=== PATIENT | male | born 1975 | race Two or more races ===

== ENCOUNTER 2021-02-24 08:31 | Inpatient (IN) | payer BC ==
[~2021-02-24] VITALS: Ht 162.6 cm; Wt 101.3 kg
--- NOTE | 2021-02-24 08:54 | PHYS DOC ---
General Adult EDM: Chief Complaint: SHORTNESS OF BREATH HPI: HPI: 46-year-old male presents to the ED from [facility] urgent care by Dr. Loera from [facility] primary care, with concern for hypoxia, saturating 86% on room air, tested positive for Covid 5 days ago. C/o dry cough causing him to be of most of the night/insomnia with associated dyspnea, sore throat, headache fatigue and nausea x 5 days. Did not receive the Covid vaccine. Review of Systems: Review of Systems: Constitutional: Denies fever or chills. [] Eyes: Denies change in visual acuity. [] HENT: Denies nasal congestion or rhinorrhea Respiratory: Denies abscess or increased work of breathing Cardiovascular: Denies chest pain or edema. [] GI: Denies abdominal pain, bloody stools or diarrhea. [] : Denies dysuria or incontinence Musculoskeletal: Denies back pain or joint pain. [] Integument: Denies rash or diaphoresis Neurologic: Denies headache, focal weakness or sensory changes. [] Endocrine: Denies polyuria or polydipsia. [] Lymphatic: Denies swollen glands. [] Psychiatric: Denies depression or anxiety. [] Heart Score: C/O Chest Pain: No Risk Factors: Risk Factors: DM, Current or recent (<one month) smoker, HTN, HLP, family history of CAD, obesity. Risk Scores: Score 0 - 3: 2.5% MACE over next 6 weeks - Discharge Home Score 4 - 6: 20.3% MACE over next 6 weeks - Admit for Clinical Observation Score 7 - 10: 72.7% MACE over next 6 weeks - Early Invasive Strategies Allergies: Allergies: Allergies Coded Allergies Type Severity Reaction Last Updated Verified Penicillins Allergy Intermediate rash 02/24/21 Yes Physical Exam: PE: Constitutional: febrile/flu appearing but not toxic appearing HENT: Normocephalic, atraumatic, Eyes: EOMI, conjunctiva normal, no discharge. Neck: Normal range of motion, supple, Cardiovascular: S1/2 present, tachycardic Lungs & Thorax: Speaking in full sentences, bilateral equal chest rise, no tachypnea or increased work of breathing, 90% on 6L, was 80% on arrival Abdomen: soft, no tenderness, obese Skin: Warm, dry, no erythema, no rash. [] Extremities: No tenderness, no cyanosis, no unilateral lower extremity edema Neurologic: Alert and oriented X 3, normal motor function, normal sensory function, no focal deficits noted. [] Psychologic: Affect normal, judgement normal, mood normal. [] EKG: EKG: Sinus tachycardia 114 bpm, left axis deviation, T wave inversion lead III, no ST elevation or ST depression, S1Q3T3 present with poor R wave progression Radiology/Procedures: Radiology/Procedures: []IMAGING REPORT Signed PATIENT: OSMAR MORA ACCOUNT: [id number] : 1975 LOCATION: ER AGE: 46 SEX: M EXAM STATUS: PRE ER ORD. PHYSICIAN: MAURA BUSTOS DO REASON: soa PROCEDURE: PORTABLE CHEST 1V INDICATION: Reason: soa / Spl. Instructions: / History: COMPARISON: None. FINDINGS: Single view of chest obtained. Multifocal opacities throughout the bilateral lungs most severe at the right upper and left lower lung. Hypoexpansion. Prominent cardiomediastinal silhouette likely exaggerated by portable technique. IMPRESSION: * Bilateral pulmonic opacities which could be from bilateral pneumonia. Electronically signed by: Cristobal Abdalla MD (02/24/2021 9:41 AM) [id number] DICTATED and SIGNED BY: CRISTOBAL ABDALLA MD DATE: 02/24/21 [id number] 0 Course & Med Decision Making: Course & Med Decision Making Pertinent Labs and Imaging studies reviewed. (See chart for details) Concern for COVID-19 infection with hypoxia requiring nasal cannula and sepsis secondary to Covid with concern for community-acquired pneumonia. Started on broad-spectrum antibiotics. Will admit for further medical management. Patient stable at time of admission and agrees with this plan. I have spoken with the patient and/or caregivers. I have explained the patient's condition, diagnosis and treatment plan based on the information available to me at this time. I have answered the patient's and/or caregivers questions and answered any concerns. The patient and/or caregivers have as good an understanding of the patient's diagnosis, condition and treatment plan as can be expected at this point. The patient has been stabilized within the capability of the emergency department. The patient will be transported for further care and management or will be moved to an observation or inpatient service. I have communicated with the staff or medical practitioner taking over this patient's care. Dragon Disclaimer: Laura Disclaimer: This electronic medical record was generated, in whole or in part, using a voice recognition dictation system. Departure Departure Impression: Primary Impression: COVID-19 Additional Impressions: Hypoxia Sepsis Bilateral pneumonia Disposition: ADMITTED INPATIENT Admitting Physician: TRUONG Pérez) Condition: GUARDED MAURA WELCH DO Feb 24, 2021 08:54
[2021-02-24 09:05] LABS: BASE EXCESS ABG -1 mmol/L (-3-3); HCO3 ABG 23 mmol/L (21-28); PCO2 ABG 34 mmHg (35-46); PO2 ABG 61 mmHg (75-108); SAT O2 ABG 91 % (92-99)
[2021-02-24 09:07] LABS: FIO2 ABG 44% / 6L NC
[2021-02-24] MEDS ORDERED: DEXAMETHASONE SOD PHOS 20 MG/5 ML VIAL. IV ONE (09:15)
--- NOTE | 2021-02-24 09:22 | EKG ---
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
[2021-02-24 09:41] LABS: BASO % 0 % (0-3); EOS % 0 % (0-3); HEMATOCRIT 42.4 % (39.0-53.0); HEMOGLOBIN 14.9 g/dL (13.0-17.5); LYMPH # 0.7 x10^3/uL (1.0-4.8); LYMPH % 7 % (24-48); MEAN CORPUSCULAR HEMOGLOBIN 30 pg (25-35); MEAN CORPUSCULAR HGB CONC 35 g/dL (31-37); MEAN CORPUSCULAR VOLUME 86 fL (79-100); MONO # 0.4 x10^3/uL (0.0-1.1); MONO % 4 % (0-9); NEUT # 8.4 x10^3/uL (1.8-7.7); NEUT % 88 % (31-73); PLATELET COUNT 325 x10^3/uL (140-400); RED BLOOD COUNT 4.92 x10^6/uL (4.30-5.70); RED CELL DISTRIBUTION WIDTH 14.2 % (11.5-14.5); WHITE BLOOD COUNT 9.5 x10^3/uL (4.0-11.0)
--- NOTE | 2021-02-24 09:43 | RAD ---
INDICATION: Reason: soa / Spl. Instructions: / History: COMPARISON: None. FINDINGS: Single view of chest obtained. Multifocal opacities throughout the bilateral lungs most severe at the right upper and left lower dre g. Hypoexpansion. Prominent cardiomediastinal silhouette likely exaggerated by portable technique. IMPRESSION: * Bilateral pulmonic opacities which could be from bilateral pneumonia. Electronically signed by: Tino Blunt MD (02/24/2021 9:41 AM) [id number]
[2021-02-24 09:52] LABS: CALCIUM 8.4 mg/dL (8.5-10.1); GFR 79.8; POTASSIUM 4.7 mmol/L (3.5-5.1)
[2021-02-24 09:58] LABS: ALBUMIN 3.1 g/dL (3.4-5.0); DIRECT BILIRUBIN 0.4 mg/dL (0.0-0.2); TOTAL BILIRUBIN 0.8 mg/dL (0.2-1.0); TOTAL PROTEIN 7.4 g/dL (6.4-8.2)
[2021-02-24] MEDS ORDERED: ACETAMINOPHEN 325 MG TABLET. PO ONE (10:00)
[2021-02-24] MEDS ORDERED: cefTRIAXone IV Push 1 GM VIAL. IVP ONE (10:00)
[2021-02-24] MEDS ORDERED: IV NORMAL SALINE 1000ML BAG 1,000 ML IV ONE ×2 (10:00)
[2021-02-24] MEDS ORDERED: AZITHRMYCN 500MG IVPB FOR OMNI 250 ML IV ONE (10:00)
[2021-02-24 10:08] LABS: PROTHROMBIN TIME PATIENT 13.4 SEC (11.7-14.0)
[2021-02-24 11:12] LABS: INFLUENZA A PATIENT NEGATIVE (NEGATIVE); INFLUENZA B PATIENT NEGATIVE (NEGATIVE)
[2021-02-24 12:15] VITALS: BP 110/71
[2021-02-24 12:33] LABS: % BANDS 1 % (0-9); % LYMPHS 7 % (24-48); % MONOS 2 % (0-10); % SEGS 90 % (35-66); PLT ESTIMATE ADEQUATE (ADEQUATE)
[2021-02-24] MEDS ORDERED: METF10007 PO (13:18)
[2021-02-24] MEDS ORDERED: REMDESIVIR LOAD in IV NORMAL SALINE 250ML TV IV ONE (14:00)
[2021-02-24] MEDS ORDERED: DEXTROSE 50% 25 GM / 50ML DISP.SYRIN. IV PRN (14:30)
--- NOTE | 2021-02-24 14:42 | PDOC1 ---
History and Physical Date of Admission Date of Admission DATE: 02/24/21 TIME: 14:16 Identification/Chief Complaint Chief Complaint Shortness of breath Source Source: Patient History of Present Illness History of Present Illness Patient is a 46-year-old male with past medical history DM2, HLD, presents to the ED with complaints of worsening shortness of breath. States he was tested positive for COVID-19 5 days ago, and his symptoms have been worsening since that time. He reports associated cough, fever, headache, sore throat, fatigue, body aches, loss of smell, and loss of taste. Upon arrival in the ED he was tac hycardic and febrile, with T-max 103.3 F. His oxygen saturation was 80% on room air, which improved with 6 L nasal cannula. Labs on admission showed CBG 295, CK 462, albumin 3.1. He received IV fluids, Rocephin, and IV Decadron. States he did not receive his COVID-19 vaccination as he was concerned that the side effects may make him feel sick. Will admit patient for further medical management. Past Medical History Cardiovascular: Hyperlipidemia Endocrine: Diabetes Past Surgical History Past Surgical History: No pertinent history Family History Family History: Diabetes Social History Smoke: No ALCOHOL: none Drugs: None Current Problem List Problem List Problems Medical Problems: (1) Bilateral pneumonia Status: Acute (2) COVID-19 Status: Acute (3) Hypoxia Status: Acute (4) Sepsis Status: Acute Current Medications Current Medications Current Medications Dexamethasone Sodium Phosphate (Decadron) 10 mg 1X ONCE IV Last administered on 02/24/21at 09:18; Start 02/24/21 at 09:15; Stop 02/24/21 at 09:16; Status DC Ceftriaxone Sodium (Rocephin) 1 gm 1X ONCE IVP Last administered on 02/24/21at 10:38; Start 02/24/21 at 10:00; Stop 02/24/21 at 10:01; Status DC Azithromycin 250 ml @ 250 mls/hr 1X ONCE IV Last administered on 02/24/21at 10:43; Start 02/24/21 at 10:00; Stop 02/24/21 at 10:59; Status DC Acetaminophen (Tylenol) 650 mg 1X ONCE PO Last administered on 02/24/21at 10:46; Start 02/24/21 at 10:00; Stop 02/24/21 at 10:01; Status DC Sodium Chloride 1,000 ml @ 1,000 mls/hr 1X ONCE IV Last administered on 02/24/21at 10:36; Start 02/24/21 at 10:00; Stop 02/24/21 at 10:59; Status DC Sodium Chloride 1,000 ml @ 1,000 mls/hr 1X ONCE IV Last administered on 02/24/21at 10:00; Start 02/24/21 at 10:00; Stop 02/24/21 at 10:59; Status DC Remdesivir 200 mg/ Sodium Chloride 210 ml @ 210 mls/hr 1X ONCE IV ; Start 02/24/21 at 14:00; Stop 02/24/21 at 14:59 Remdesivir 100 mg/ Sodium Chloride 230 ml @ 460 mls/hr Q24H IV ; Start 02/25/21 at 14:00; Stop 02/28/21 at 14:29 Active Scripts Active Reported Metformin Hcl 1,000 Mg Tablet 1,000 Mg PO BIDWMEALS Allergies Allergies: Coded Allergies: Penicillins (Verified Allergy, Intermediate, rash, 02/24/21) ROS Review of System GENERAL: Fever, weakness, fatigue, body aches. No history of weight change. SKIN: No bruising, hair changes or rashes. EYES: No blurred, double or loss of vision. NOSE AND THROAT: Sore throat, loss of smell, loss of taste. Denies history of nosebleeds or hoarseness. HEART: Denies chest pain, denies palpitations. LUNGS: Cough, shortness of breath. Denies hemoptysis or wheezing. GASTROINTESTINAL: Denies nausea, vomiting, abdominal pain. GENITOURINARY: Denies dysuria, frequency, urgency, hematuria. NEUROLOGIC: Headache. Denies history of numbness, tingling, or tremor. PSYCHIATRIC: Denies anxiety, denies depression. ENDOCRINE: No history of heat or cold intolerance, polyuria or polydipsia. EXTREMITIES: Denies muscle weakness, joint pain, pain on walking or stiffness. Physical Exam Physical Exam General: Alert, Oriented X3, Cooperative, moderate distress HEENT: PERRLA, EOMI Lungs: Decreased breath sounds bilaterally, Normal air movement Heart: Tachycardic, no murmurs Cardiovascular: S1, S2 Abdomen: Normal bowel sounds, Soft, No tenderness Extremities: No clubbing, No cyanosis Skin: No rashes, No significant lesion Neuro: Normal speech, Normal tone, Sensation intact Psych/Mental Status: Mental status NL, Mood NL Vitals Vitals Vital Signs Date Time Temp Pulse Resp B/P (MAP) Pulse Ox O2 Delivery O2 Flow Rate FiO2 02/24/21 13:19 Non-Rebreather 15.0 02/24/21 12:15 98.9 96 20 110/71 (84) 94 98.9 Labs Labs Laboratory Tests Test 02/24/21 09:00 02/24/21 09:10 02/24/21 09:42 02/24/21 10:48 O2 Saturation 91 % (92-99) Arterial Blood pH 7.45 (7.35-7.45) Arterial Blood pCO2 at Patient Temp 34 mmHg (35-46) Arterial Blood pO2 at Patient Temp 61 mmHg (75-108) Arterial Blood HCO3 23 mmol/L (21-28) Arterial Blood Base Excess -1 mmol/L (-3-3) FiO2 44% / 6l nc White Blood Count 9.5 x10^3/uL (4.0-11.0) Red Blood Count 4.92 x10^6/uL (4.30-5.70) Hemoglobin 14.9 g/dL (13.0-17.5) Hematocrit 42.4 % (39.0-53.0) Mean Corpuscular Volume 86 fL (79-100) Mean Corpuscular Hemoglobin 30 pg (25-35) Mean Corpuscular Hemoglobin Concent 35 g/dL (31-37) Red Cell Distribution Width 14.2 % (11.5-14.5) Platelet Count 325 x10^3/uL (140-400) Neutrophils (%) (Auto) 88 % (31-73) Lymphocytes (%) (Auto) 7 % (24-48) Monocytes (%) (Auto) 4 % (0-9) Eosinophils (%) (Auto) 0 % (0-3) Basophils (%) (Auto) 0 % (0-3) Neutrophils # (Auto) 8.4 x10^3/uL (1.8-7.7) Lymphocytes # (Auto) 0.7 x10^3/uL (1.0-4.8) Monocytes # (Auto) 0.4 x10^3/uL (0.0-1.1) Eosinophils # (Auto) 0.0 x10^3/uL (0.0-0.7) Basophils # (Auto) 0.0 x10^3/uL (0.0-0.2) Segmented Neutrophils % 90 % (35-66) Band Neutrophils % 1 % (0-9) Lymphocytes % 7 % (24-48) Monocytes % 2 % (0-10) Platelet Estimate Adequate (ADEQUATE) Sodium Level 133 mmol/L (136-145) Potassium Level 4.7 mmol/L (3.5-5.1) Chloride Level 95 mmol/L (98-107) Carbon Dioxide Level 28 mmol/L (21-32) Anion Gap 10 (6-14) Blood Urea Nitrogen 15 mg/dL (8-26) Creatinine 1.0 mg/dL (0.7-1.3) Estimated GFR (Cockcroft-Gault) 79.8 Glucose Level 295 mg/dL (70-99) Lactic Acid Level 1.8 mmol/L (0.4-2.0) Calcium Level 8.4 mg/dL (8.5-10.1) Total Bilirubin 0.8 mg/dL (0.2-1.0) Direct Bilirubin 0.4 mg/dL (0.0-0.2) Aspartate Amino Transf (AST/SGOT) 32 U/L (15-37) Alanine Aminotransferase (ALT/SGPT) 47 U/L (16-63) Alkaline Phosphatase 67 U/L (46-116) Creatine Kinase 462 U/L (39-308) Troponin I Quantitative < 0.017 ng/mL (0.000-0.055) VP-Llj-H-Type Natriuretic Peptide 7 pg/mL (0-124) Total Protein 7.4 g/dL (6.4-8.2) Albumin 3.1 g/dL (3.4-5.0) Prothrombin Time 13.4 SEC (11.7-14.0) Prothromb Time International Ratio 1.0 (0.8-1.1) Activated Partial Thromboplast Time 30 SEC (24-38) D-Dimer (Debby) ug/mlFEU (0.00-0.50) Influenza Type A Antigen Negative (NEGATIVE) Influenza Type B Antigen Negative (NEGATIVE) Test 02/24/21 12:30 Glucose (Fingerstick) 240 mg/dL (70-99) Laboratory Tests Test 02/24/21 09:00 02/24/21 09:10 02/24/21 09:42 02/24/21 10:48 O2 Saturation 91 % (92-99) Arterial Blood pH 7.45 (7.35-7.45) Arterial Blood pCO2 at Patient Temp 34 mmHg (35-46) Arterial Blood pO2 at Patient Temp 61 mmHg (75-108) Arterial Blood HCO3 23 mmol/L (21-28) Arterial Blood Base Excess -1 mmol/L (-3-3) FiO2 44% / 6l nc White Blood Count 9.5 x10^3/uL (4.0-11.0) Red Blood Count 4.92 x10^6/uL (4.30-5.70) Hemoglobin 14.9 g/dL (13.0-17.5) Hematocrit 42.4 % (39.0-53.0) Mean Corpuscular Volume 86 fL (79-100) Mean Corpuscular Hemoglobin 30 pg (25-35) Mean Corpuscular Hemoglobin Concent 35 g/dL (31-37) Red Cell Distribution Width 14.2 % (11.5-14.5) Platelet Count 325 x10^3/uL (140-400) Neutrophils (%) (Auto) 88 % (31-73) Lymphocytes (%) (Auto) 7 % (24-48) Monocytes (%) (Auto) 4 % (0-9) Eosinophils (%) (Auto) 0 % (0-3) Basophils (%) (Auto) 0 % (0-3) Neutrophils # (Auto) 8.4 x10^3/uL (1.8-7.7) Lymphocytes # (Auto) 0.7 x10^3/uL (1.0-4.8) Monocytes # (Auto) 0.4 x10^3/uL (0.0-1.1) Eosinophils # (Auto) 0.0 x10^3/uL (0.0-0.7) Basophils # (Auto) 0.0 x10^3/uL (0.0-0.2) Segmented Neutrophils % 90 % (35-66) Band Neutrophils % 1 % (0-9) Lymphocytes % 7 % (24-48) Monocytes % 2 % (0-10) Platelet Estimate Adequate (ADEQUATE) Sodium Level 133 mmol/L (136-145) Potassium Level 4.7 mmol/L (3.5-5.1) Chloride Level 95 mmol/L (98-107) Carbon Dioxide Level 28 mmol/L (21-32) Anion Gap 10 (6-14) Blood Urea Nitrogen 15 mg/dL (8-26) Creatinine 1.0 mg/dL (0.7-1.3) Estimated GFR (Cockcroft-Gault) 79.8 Glucose Level 295 mg/dL (70-99) Lactic Acid Level 1.8 mmol/L (0.4-2.0) Calcium Level 8.4 mg/dL (8.5-10.1) Total Bilirubin 0.8 mg/dL (0.2-1.0) Direct Bilirubin 0.4 mg/dL (0.0-0.2) Aspartate Amino Transf (AST/SGOT) 32 U/L (15-37) Alanine Aminotransferase (ALT/SGPT) 47 U/L (16-63) Alkaline Phosphatase 67 U/L (46-116) Creatine Kinase 462 U/L (39-308) Troponin I Quantitative < 0.017 ng/mL (0.000-0.055) AL-Wfq-N-Type Natriuretic Peptide 7 pg/mL (0-124) Total Protein 7.4 g/dL (6.4-8.2) Albumin 3.1 g/dL (3.4-5.0) Prothrombin Time 13.4 SEC (11.7-14.0) Prothromb Time International Ratio 1.0 (0.8-1.1) Activated Partial Thromboplast Time 30 SEC (24-38) D-Dimer (Debby) ug/mlFEU (0.00-0.50) Influenza Type A Antigen Negative (NEGATIVE) Influenza Type B Antigen Negative (NEGATIVE) Test 02/24/21 12:30 Glucose (Fingerstick) 240 mg/dL (70-99) Images Images PATIENT: OSMAR MORA ACCOUNT: [id number] : 1975 LOCATION: ER AGE: 46 SEX: M EXAM STATUS: PRE ER ORD. PHYSICIAN: MAURA BUSTOS DO REASON: soa PROCEDURE: PORTABLE CHEST 1V INDICATION: Reason: soa / Spl. Instructions: / History: COMPARISON: None. FINDINGS: Single view of chest obtained. Multifocal opacities throughout the bilateral lungs most severe at the right upper and left lower lung. Hypoexpansion. Prominent cardiomediastinal silhouette likely exaggerated by portable technique. IMPRESSION: * Bilateral pulmonic opacities which could be from bilateral pneumonia. VTE Prophylaxis Ordered VTE Prophylaxis Devices: No VTE Pharmacological Prophylaxi: Yes Assessment/Plan Assessment/Plan Acute respiratory failure with hypoxia COVID-19 pneumonia DM2 with hyperglycemia Elevated CK Moderate malnutrition Plan: We will initiate remdesivir monitor daily LFTs IV Decadron 6 mg daily to complete 10-day course; empiric antibiotics. We will provide supportive care; zinc, vitamin C Will follow CRP; if CRP >75, will consult pulmonology and likely initiate Tocilizumab if available. Continue to wean O2 as tolerated to maintain saturations greater than 92%. If patient is requiring significant amounts of oxygen (high flow nasal cannula) will consult pulmonology for further recommendations. Basal/prandial insulin Resume home medications FEN - ADA diet PPX - Lovenox FULL CODE Dispo - inpatient for above Patient names his (Kacey Mora) as surrogate decision-maker. Justifications for Admission Other Justification ROBB PANDEY MD Feb 24, 2021 14:42
[2021-02-24] MEDS ORDERED: CALCIUM CARBONATE 500 MG TAB.CHEW PO PRN (14:45)
[2021-02-24] MEDS ORDERED: MAG HYDROX/ALUMINUM HYD/SIMETH 30 ML ORAL.SUSP PO PRN (14:45)
[2021-02-24] MEDS ORDERED: HYDROcodone/APAP 5/325MG 1 TAB TABLET PO PRN (14:45)
[2021-02-24] MEDS ORDERED: ONDANSETRON PF 4 MG/2 ML VIAL. IVP PRN (14:45)
[2021-02-24] MEDS ORDERED: ZOLPIDEM 5 MG TABLET. PO PRN (14:45)
[2021-02-24] MEDS ORDERED: MAGNESIUM HYDROXIDE 2,400 MG/30 ML ORAL.SUSP. PO PRN (14:45)
[2021-02-24] MEDS ORDERED: ACETAMINOPHEN 325 MG TABLET. PO PRN (14:45)
[2021-02-24 15:00] VITALS: BP 173/89
[2021-02-24] MEDS ORDERED: tiZANidine 4 MG TABLET. PO PRN (15:00)
[2021-02-24] MEDS: ENOXAPARIN 40 MG/0.4 ML SYRINGE. SQ SCH (15:00)
[2021-02-24] MEDS ORDERED: INSU100V13 SQ (17:24)
[2021-02-24] MEDS ORDERED: LANS30CA PO (17:24)
[2021-02-24] MEDS ORDERED: SITA100T PO (17:24)
[2021-02-24] MEDS ORDERED: GLIM4TAB8 PO (17:24)
[2021-02-24] MEDS ORDERED: ATOR40TA59 PO (17:24)
[2021-02-24] MEDS ORDERED: LISI30TA4 PO (17:24)
[2021-02-24] MEDS: INSULIN LISPRO 300 UNITS/3 ML VIAL. SQ SCH (17:37)
[2021-02-24 19:00] VITALS: BP 133/71
[2021-02-24] MEDS: DOXYCYCLINE HYCLATE 100 MG TABLET PO SCH (20:55)
[2021-02-24] MEDS ORDERED: INSULIN GLARGINE SYRINGE. SQ SCH (21:00)
[2021-02-24 23:00] VITALS: BP 119/66
[2021-02-25 03:00] VITALS: BP 104/64
[2021-02-25 07:00] VITALS: BP 111/61
[2021-02-25 07:15] LABS: BASO # 0.1 x10^3/uL (0.0-0.2); BASO % 1 % (0-3); EOS % 0 % (0-3); HEMATOCRIT 40.7 % (39.0-53.0); HEMOGLOBIN 13.9 g/dL (13.0-17.5); LYMPH # 0.7 x10^3/uL (1.0-4.8); LYMPH % 8 % (24-48); MEAN CORPUSCULAR HEMOGLOBIN 30 pg (25-35); MEAN CORPUSCULAR HGB CONC 34 g/dL (31-37); MEAN CORPUSCULAR VOLUME 87 fL (79-100); MONO # 0.5 x10^3/uL (0.0-1.1); MONO % 5 % (0-9); NEUT # 8.5 x10^3/uL (1.8-7.7); NEUT % 86 % (31-73); PLATELET COUNT 353 x10^3/uL (140-400); RED BLOOD COUNT 4.67 x10^6/uL (4.30-5.70); RED CELL DISTRIBUTION WIDTH 14.2 % (11.5-14.5); WHITE BLOOD COUNT 9.8 x10^3/uL (4.0-11.0)
[2021-02-25] MEDS ORDERED: DEXTROSE 50% 25 GM / 50ML DISP.SYRIN. IV PRN (07:30)
--- NOTE | 2021-02-25 07:33 | PDOC ---
[employer] PROGRESS NOTE Date of Service DOS: DATE: 02/25/21 TIME: 07:25 Chief Complaint Chief Complaint A/P: Acute respiratory failure with hypoxia COVID-19 pneumonia - remdesivir, daily LFTs, IV Decadron 6 mg daily to complete 10-day, supportive care; zinc, vitamin C, if CRP >75, will consult pulm and initiate Tocilizumab DM2 with hyperglycemia Elevated CK Moderate malnutrition Hyponatremia FEN - ADA diet PPX - Lovenox FULL CODE Dispo - inpatient for above Patient names his (Kacey Brennan) as surrogate decision-maker. History of Present Illness History of Present Illness Mr Brennan is a 46-year-old male with past medical history DM2, HLD, presents to the ED with complaints of worsening shortness of breath. States he was tested positive for COVID-19 5 days ago, and his symptoms have been worsening since that time. He reports associated cough, fever, headache, sore throat, fatigue, body aches, loss of smell, and loss of taste. Upon arrival in the ED he was tachycardic and febrile, with T-max 103.3 F. His oxygen saturation was 80% on room air, which improved with 6 L nasal cannula. Labs on admission showed CBG 295, CK 462, albumin 3.1. He received IV fluids, Rocephin, and IV Decadron. States he did not receive his COVID-19 vaccination as he was concerned that the side effects may make him feel sick. Will admit patient for further medical management. ABG 7.45/34/61 on 6 L nasal cannula Febrile 101.4 F overnight glucose in the 200s. Now on 15 L nasal cannula with O2 saturations 96%. CRP returned over 120. Appetite poor Vitals/I&O Vitals/I&O: Vital Signs Date Time Temp Pulse Resp B/P (MAP) Pulse Ox O2 Delivery O2 Flow Rate FiO2 02/25/21 03:00 98.3 77 20 104/64 (77) 94 NonRebreather Mask 15.0 98.3 I & O 02/24/21 02/24/21 02/25/21 15:00 23:00 07:00 Intake Total 450 ml Output Total 800 ml Balance -350 ml Physical Exam General: Alert, Oriented X3, Cooperative, moderate distress Heart: Regular rate, Normal S1, Normal S2 Lungs: Clear Abdomen: Normal bowel sounds, Soft Extremities: No clubbing, No cyanosis Skin: No rashes, No breakdown Labs Labs: Laboratory Tests Test 02/24/21 09:00 02/24/21 09:10 02/24/21 09:42 02/24/21 10:48 O2 Saturation 91 % (92-99) Arterial Blood pH 7.45 (7.35-7.45) Arterial Blood pCO2 at Patient Temp 34 mmHg (35-46) Arterial Blood pO2 at Patient Temp 61 mmHg (75-108) Arterial Blood HCO3 23 mmol/L (21-28) Arterial Blood Base Excess -1 mmol/L (-3-3) FiO2 44% / 6l nc White Blood Count 9.5 x10^3/uL (4.0-11.0) Red Blood Count 4.92 x10^6/uL (4.30-5.70) Hemoglobin 14.9 g/dL (13.0-17.5) Hematocrit 42.4 % (39.0-53.0) Mean Corpuscular Volume 86 fL (79-100) Mean Corpuscular Hemoglobin 30 pg (25-35) Mean Corpuscular Hemoglobin Concent 35 g/dL (31-37) Red Cell Distribution Width 14.2 % (11.5-14.5) Platelet Count 325 x10^3/uL (140-400) Neutrophils (%) (Auto) 88 % (31-73) Lymphocytes (%) (Auto) 7 % (24-48) Monocytes (%) (Auto) 4 % (0-9) Eosinophils (%) (Auto) 0 % (0-3) Basophils (%) (Auto) 0 % (0-3) Neutrophils # (Auto) 8.4 x10^3/uL (1.8-7.7) Lymphocytes # (Auto) 0.7 x10^3/uL (1.0-4.8) Monocytes # (Auto) 0.4 x10^3/uL (0.0-1.1) Eosinophils # (Auto) 0.0 x10^3/uL (0.0-0.7) Basophils # (Auto) 0.0 x10^3/uL (0.0-0.2) Segmented Neutrophils % 90 % (35-66) Band Neutrophils % 1 % (0-9) Lymphocytes % 7 % (24-48) Monocytes % 2 % (0-10) Platelet Estimate Adequate (ADEQUATE) Sodium Level 133 mmol/L (136-145) Potassium Level 4.7 mmol/L (3.5-5.1) Chloride Level 95 mmol/L (98-107) Carbon Dioxide Level 28 mmol/L (21-32) Anion Gap 10 (6-14) Blood Urea Nitrogen 15 mg/dL (8-26) Creatinine 1.0 mg/dL (0.7-1.3) Estimated GFR (Cockcroft-Gault) 79.8 Glucose Level 295 mg/dL (70-99) Lactic Acid Level 1.8 mmol/L (0.4-2.0) Calcium Level 8.4 mg/dL (8.5-10.1) Total Bilirubin 0.8 mg/dL (0.2-1.0) Direct Bilirubin 0.4 mg/dL (0.0-0.2) Aspartate Amino Transf (AST/SGOT) 32 U/L (15-37) Alanine Aminotransferase (ALT/SGPT) 47 U/L (16-63) Alkaline Phosphatase 67 U/L (46-116) Creatine Kinase 462 U/L (39-308) Troponin I Quantitative < 0.017 ng/mL (0.000-0.055) NF-Oef-C-Type Natriuretic Peptide 7 pg/mL (0-124) Total Protein 7.4 g/dL (6.4-8.2) Albumin 3.1 g/dL (3.4-5.0) Prothrombin Time 13.4 SEC (11.7-14.0) Prothromb Time International Ratio 1.0 (0.8-1.1) Activated Partial Thromboplast Time 30 SEC (24-38) D-Dimer (Debby) ug/mlFEU (0.00-0.50) Influenza Type A Antigen Negative (NEGATIVE) Influenza Type B Antigen Negative (NEGATIVE) Test 02/24/21 12:30 02/24/21 16:27 02/24/21 20:40 02/25/21 06:45 Glucose (Fingerstick) 240 mg/dL (70-99) 290 mg/dL (70-99) 302 mg/dL (70-99) White Blood Count 9.8 x10^3/uL (4.0-11.0) Red Blood Count 4.67 x10^6/uL (4.30-5.70) Hemoglobin 13.9 g/dL (13.0-17.5) Hematocrit 40.7 % (39.0-53.0) Mean Corpuscular Volume 87 fL (79-100) Mean Corpuscular Hemoglobin 30 pg (25-35) Mean Corpuscular Hemoglobin Concent 34 g/dL (31-37) Red Cell Distribution Width 14.2 % (11.5-14.5) Platelet Count 353 x10^3/uL (140-400) Neutrophils (%) (Auto) 86 % (31-73) Lymphocytes (%) (Auto) 8 % (24-48) Monocytes (%) (Auto) 5 % (0-9) Eosinophils (%) (Auto) 0 % (0-3) Basophils (%) (Auto) 1 % (0-3) Neutrophils # (Auto) 8.5 x10^3/uL (1.8-7.7) Lymphocytes # (Auto) 0.7 x10^3/uL (1.0-4.8) Monocytes # (Auto) 0.5 x10^3/uL (0.0-1.1) Eosinophils # (Auto) 0.0 x10^3/uL (0.0-0.7) Basophils # (Auto) 0.1 x10^3/uL (0.0-0.2) Assessment and Plan Assessmemt and Plan Problems Medical Problems: (1) Bilateral pneumonia Status: Acute (2) COVID-19 Status: Acute (3) Hypoxia Status: Acute (4) Sepsis Status: Acute Comment Review of Relevant I have reviewed the following items alok (where applicable) has been applied. Medications: Current Medications Medications (Trade) Dose Ordered Sig/Carole Route PRN Reason Start Time Stop Time Status Last Admin Dose Admin Dexamethasone Sodium Phosphate (Decadron) 10 mg 1X ONCE IV 02/24/21 09:15 02/24/21 09:16 DC 02/24/21 09:18 Ceftriaxone Sodium (Rocephin) 1 gm 1X ONCE IVP 02/24/21 10:00 02/24/21 10:01 DC 02/24/21 10:38 Azithromycin 250 ml @ 250 mls/hr 1X ONCE IV 02/24/21 10:00 02/24/21 10:59 DC 02/24/21 10:43 Acetaminophen (Tylenol) 650 mg 1X ONCE PO 02/24/21 10:00 02/24/21 10:01 DC 02/24/21 10:46 Sodium Chloride 1,000 ml @ 1,000 mls/hr 1X ONCE IV 02/24/21 10:00 02/24/21 10:59 DC 02/24/21 10:36 Sodium Chloride 1,000 ml @ 1,000 mls/hr 1X ONCE IV 02/24/21 10:00 02/24/21 10:59 DC 02/24/21 10:00 Remdesivir 200 mg/ Sodium Chloride 210 ml @ 210 mls/hr 1X ONCE IV 02/24/21 14:00 02/24/21 14:59 DC 02/24/21 14:59 Insulin Glargine (Lantus Syringe) 10 unit QHS SQ 02/24/21 21:00 02/24/21 20:56 Insulin Human Lispro (HumaLOG) 3 units TIDWMEALS SQ 02/24/21 17:00 02/24/21 17:37 Doxycycline Hyclate (Vibra-Tab) 100 mg BID PO 02/24/21 21:00 03/01/21 20:59 02/24/21 20:55 Enoxaparin Sodium (Lovenox 40mg Syringe) 40 mg Q24H SQ 02/24/21 15:00 02/24/21 15:00 Justifications for Admission Other Justification MYNOR SNOW MD Feb 25, 2021 07:33
[2021-02-25 08:01] LABS: ALBUMIN 2.4 g/dL (3.4-5.0); ALBUMIN/GLOBULIN RATIO 0.5 (1.0-1.7); CALCIUM 8.3 mg/dL (8.5-10.1); CREATININE 0.8 mg/dL (0.7-1.3); DIRECT BILIRUBIN 0.2 mg/dL (0.0-0.2); GFR 103.2; POTASSIUM 4.2 mmol/L (3.5-5.1); TOTAL BILIRUBIN 0.5 mg/dL (0.2-1.0)
[2021-02-25 08:15] LABS: MAGNESIUM 2.4 mg/dL (1.8-2.4)
[2021-02-25] MEDS: ZINC SULFATE 220 MG CAPSULE. PO SCH (08:30)
[2021-02-25] MEDS: ASCORBIC ACID 500 MG TABLET PO SCH (08:30)
[2021-02-25] MEDS: DOXYCYCLINE HYCLATE 100 MG TABLET PO SCH ×2 (08:30→21:21)
[2021-02-25] MEDS: THIAMINE 100 MG TABLET. PO SCH (08:30)
[2021-02-25] MEDS: DEXAMETHASONE SOD PHOS 4 MG/ML VIAL IVP SCH (08:30)
[2021-02-25] MEDS: cefTRIAXone IV Push 1 GM VIAL. IVP SCH (08:33)
[2021-02-25] MEDS: INSULIN LISPRO 300 UNITS/3 ML VIAL. SQ SCH ×6 (08:34→17:05)
--- NOTE | 2021-02-25 10:56 | NUR ---
SW following. Discussed with RN, pt from home with , 15L NRB, ada diet. COVID-19 positive. RN advised no SW needs at this time. SW will continue to follow.
[2021-02-25 11:18] VITALS: BP 133/81
--- NOTE | 2021-02-25 11:56 | CONS ---
DATE OF CONSULTATION: 02/25/2021 PULMONARY CONSULTATION INDICATIONS: COVID-19 pneumonia, respiratory failure. HISTORY OF PRESENT ILLNESS: The patient is a 46-year-old male with a BMI of 38. He is unvaccinated. He was brought into the hospital after he started to have shortness of breath. He was tested positive for COVID-19 five days ago. He has a cough, subjective fevers, headache, sore throat, body aches and loss of smell and loss of taste. He was tachycardic, he had a fever of 103.3 degrees Fahrenheit and was hypoxic on room air with saturations in the 80s. He is currently on a nonrebreather mask. His chest x-ray revealed bilateral interstitial infiltrates consistent with COVID-19 viral pneumonia. PAST MEDICAL HISTORY: Hyperlipidemia and diabetes. PAST SURGICAL HISTORY: None. FAMILY HISTORY: Diabetes. SOCIAL HISTORY: Nonsmoker. ALLERGIES: PENICILLIN. MEDICATIONS: Reviewed as listed in the MRAD including remdesivir and dexamethasone. REVIEW OF SYSTEMS: Limited, but 10-point system review obtained. Pertinent positives discussed in my history of present illness. PHYSICAL EXAMINATION: VITAL SIGNS: He is afebrile today. He had a T-max of 103.3 yesterday. GENERAL: Visual exam done due to COVID-19. He is not in any obvious respiratory distress. No paradoxical breathing. No skin rash. EXTREMITIES: No leg edema. LABORATORY DATA: White cell count 9.8, hemoglobin 13.9, platelets 353. ABGs with a pO2 of 61 on 6 liters nasal cannula. IMPRESSION: 1. Acute hypoxic respiratory failure secondary to COVID-19 viral pneumonia/early acute respiratory distress syndrome and acute lung injury. 2. No significant tobacco history. 3. Abnormal chest x-ray consistent with viral pneumonia. 4. Increased C-reactive protein. 5. Alqmcfyf-ka-rlmzze protein-calorie malnutrition. RECOMMENDATIONS: 1. Continue present nonrebreather mask. We will closely watch his respiratory status. 2. May consider adding Vapotherm if desaturates. 3. Continue dexamethasone for a total of 10 days. 4. Continue 5 days of remdesivir. 5. We will also add baricitinib. 6. Discussed with RN. We will follow along with you. JUDY/CRICKET DR: Joya TID: [phone]
[2021-02-25] MEDS: BENZONATATE 100 MG CAPSULE. PO SCH ×2 (12:04→21:21)
[2021-02-25 15:00] VITALS: BP 124/71
[2021-02-25] MEDS: BARICITINIB 2 MG PO SCH (15:25)
[2021-02-25] MEDS: ENOXAPARIN 40 MG/0.4 ML SYRINGE. SQ SCH (15:25)
[2021-02-25] MEDS: REMDESIVIR 100mg in NORMAL SALINE 250ML X 4 DAYS IV SCH (15:29)
[2021-02-25] MEDS: guaiFENesin DM 200MG/20MG 10 ML SYRUP PO PRN (17:14)
[2021-02-25 19:00] VITALS: BP 120/6
[2021-02-25] MEDS: LACTOBACILLUS RHAMNOSUS GG 1 CAPSULE. PO SCH (21:21)
[2021-02-25] MEDS: INSULIN GLARGINE SYRINGE. SQ SCH (21:22)
[2021-02-25 23:00] VITALS: BP 111/60
[2021-02-26 03:00] VITALS: BP 140/90
[2021-02-26 07:15] VITALS: BP 133/74
[2021-02-26 07:18] LABS: BASO % 0 % (0-3); EOS % 0 % (0-3); HEMATOCRIT 39.7 % (39.0-53.0); HEMOGLOBIN 13.7 g/dL (13.0-17.5); LYMPH # 1.6 x10^3/uL (1.0-4.8); LYMPH % 11 % (24-48); MEAN CORPUSCULAR HEMOGLOBIN 30 pg (25-35); MEAN CORPUSCULAR HGB CONC 35 g/dL (31-37); MEAN CORPUSCULAR VOLUME 87 fL (79-100); MONO % 7 % (0-9); NEUT # 11.4 x10^3/uL (1.8-7.7); NEUT % 81 % (31-73); PLATELET COUNT 425 x10^3/uL (140-400); RED BLOOD COUNT 4.58 x10^6/uL (4.30-5.70); RED CELL DISTRIBUTION WIDTH 13.9 % (11.5-14.5)
[2021-02-26 07:38] LABS: ALBUMIN 2.4 g/dL (3.4-5.0); CALCIUM 8.2 mg/dL (8.5-10.1); CREATININE 0.8 mg/dL (0.7-1.3); DIRECT BILIRUBIN 0.2 mg/dL (0.0-0.2); GFR 103.2; POTASSIUM 4.6 mmol/L (3.5-5.1); TOTAL BILIRUBIN 0.4 mg/dL (0.2-1.0); TOTAL PROTEIN 6.7 g/dL (6.4-8.2)
[2021-02-26] MEDS: BARICITINIB 2 MG PO SCH (07:52)
[2021-02-26] MEDS: BENZONATATE 100 MG CAPSULE. PO SCH ×3 (07:52→21:15)
[2021-02-26] MEDS: DOXYCYCLINE HYCLATE 100 MG TABLET PO SCH ×2 (07:52→21:15)
[2021-02-26] MEDS: THIAMINE 100 MG TABLET. PO SCH (07:52)
[2021-02-26] MEDS: ASCORBIC ACID 500 MG TABLET PO SCH (07:52)
[2021-02-26] MEDS: DEXAMETHASONE SOD PHOS 4 MG/ML VIAL IVP SCH (07:53)
[2021-02-26] MEDS: ZINC SULFATE 220 MG CAPSULE. PO SCH (07:53)
[2021-02-26] MEDS: LACTOBACILLUS RHAMNOSUS GG 1 CAPSULE. PO SCH ×2 (07:53→21:15)
[2021-02-26] MEDS: cefTRIAXone IV Push 1 GM VIAL. IVP SCH (07:54)
[2021-02-26] MEDS: INSULIN LISPRO 300 UNITS/3 ML VIAL. SQ SCH ×6 (07:55→17:16)
[2021-02-26] MEDS: guaiFENesin DM 200MG/20MG 10 ML SYRUP PO PRN ×2 (08:11→17:10)
--- NOTE | 2021-02-26 09:14 | PDOC ---
PULMONARY PROGRESS NOTES DATE: 02/26/21 TIME: 09:12 Subjective no increase soa on NRM 100% Vitals Vital Signs Date Time Temp Pulse Resp B/P (MAP) Pulse Ox O2 Delivery O2 Flow Rate FiO2 02/26/21 08:00 Non-Rebreather 15.0 02/26/21 07:15 98.9 76 24 133/74 (93) 97 98.9 General: Alert, No acute distress Lungs: Clear Cardiovascular: S1 Abdomen: Soft Neuro Exam: Alert Extremities: No Edema Labs Laboratory Tests Test 02/24/21 09:42 02/24/21 10:48 02/24/21 12:30 02/24/21 16:27 Prothrombin Time 13.4 SEC (11.7-14.0) Prothromb Time International Ratio 1.0 (0.8-1.1) Activated Partial Thromboplast Time 30 SEC (24-38) D-Dimer (Debby) ug/mlFEU (0.00-0.50) Influenza Type A Antigen Negative (NEGATIVE) Influenza Type B Antigen Negative (NEGATIVE) Glucose (Fingerstick) 240 mg/dL (70-99) 290 mg/dL (70-99) Test 02/24/21 20:40 02/25/21 06:45 02/25/21 07:25 02/25/21 11:15 Glucose (Fingerstick) 302 mg/dL (70-99) 260 mg/dL (70-99) 289 mg/dL (70-99) White Blood Count 9.8 x10^3/uL (4.0-11.0) Red Blood Count 4.67 x10^6/uL (4.30-5.70) Hemoglobin 13.9 g/dL (13.0-17.5) Hematocrit 40.7 % (39.0-53.0) Mean Corpuscular Volume 87 fL (79-100) Mean Corpuscular Hemoglobin 30 pg (25-35) Mean Corpuscular Hemoglobin Concent 34 g/dL (31-37) Red Cell Distribution Width 14.2 % (11.5-14.5) Platelet Count 353 x10^3/uL (140-400) Neutrophils (%) (Auto) 86 % (31-73) Lymphocytes (%) (Auto) 8 % (24-48) Monocytes (%) (Auto) 5 % (0-9) Eosinophils (%) (Auto) 0 % (0-3) Basophils (%) (Auto) 1 % (0-3) Neutrophils # (Auto) 8.5 x10^3/uL (1.8-7.7) Lymphocytes # (Auto) 0.7 x10^3/uL (1.0-4.8) Monocytes # (Auto) 0.5 x10^3/uL (0.0-1.1) Eosinophils # (Auto) 0.0 x10^3/uL (0.0-0.7) Basophils # (Auto) 0.1 x10^3/uL (0.0-0.2) Sodium Level 137 mmol/L (136-145) Potassium Level 4.2 mmol/L (3.5-5.1) Chloride Level 101 mmol/L (98-107) Carbon Dioxide Level 27 mmol/L (21-32) Anion Gap 9 (6-14) Blood Urea Nitrogen 17 mg/dL (8-26) Creatinine 0.8 mg/dL (0.7-1.3) Estimated GFR (Cockcroft-Gault) 103.2 BUN/Creatinine Ratio 21 (6-20) Glucose Level 266 mg/dL (70-99) Calcium Level 8.3 mg/dL (8.5-10.1) Magnesium Level 2.4 mg/dL (1.8-2.4) Total Bilirubin 0.5 mg/dL (0.2-1.0) Direct Bilirubin 0.2 mg/dL (0.0-0.2) Aspartate Amino Transf (AST/SGOT) 23 U/L (15-37) Alanine Aminotransferase (ALT/SGPT) 43 U/L (16-63) Alkaline Phosphatase 56 U/L (46-116) C-Reactive Protein, Quantitative 126.0 mg/L (0-3.3) Total Protein 7.0 g/dL (6.4-8.2) Albumin 2.4 g/dL (3.4-5.0) Albumin/Globulin Ratio 0.5 (1.0-1.7) Test 02/25/21 16:40 02/25/21 20:59 02/26/21 06:25 02/26/21 07:40 Glucose (Fingerstick) 280 mg/dL (70-99) 256 mg/dL (70-99) 250 mg/dL (70-99) White Blood Count 14.0 x10^3/uL (4.0-11.0) Red Blood Count 4.58 x10^6/uL (4.30-5.70) Hemoglobin 13.7 g/dL (13.0-17.5) Hematocrit 39.7 % (39.0-53.0) Mean Corpuscular Volume 87 fL (79-100) Mean Corpuscular Hemoglobin 30 pg (25-35) Mean Corpuscular Hemoglobin Concent 35 g/dL (31-37) Red Cell Distribution Width 13.9 % (11.5-14.5) Platelet Count 425 x10^3/uL (140-400) Neutrophils (%) (Auto) 81 % (31-73) Lymphocytes (%) (Auto) 11 % (24-48) Monocytes (%) (Auto) 7 % (0-9) Eosinophils (%) (Auto) 0 % (0-3) Basophils (%) (Auto) 0 % (0-3) Neutrophils # (Auto) 11.4 x10^3/uL (1.8-7.7) Lymphocytes # (Auto) 1.6 x10^3/uL (1.0-4.8) Monocytes # (Auto) 1.0 x10^3/uL (0.0-1.1) Eosinophils # (Auto) 0.0 x10^3/uL (0.0-0.7) Basophils # (Auto) 0.0 x10^3/uL (0.0-0.2) Sodium Level 136 mmol/L (136-145) Potassium Level 4.6 mmol/L (3.5-5.1) Chloride Level 103 mmol/L (98-107) Carbon Dioxide Level 26 mmol/L (21-32) Anion Gap 7 (6-14) Blood Urea Nitrogen 20 mg/dL (8-26) Creatinine 0.8 mg/dL (0.7-1.3) Estimated GFR (Cockcroft-Gault) 103.2 Glucose Level 245 mg/dL (70-99) Calcium Level 8.2 mg/dL (8.5-10.1) Total Bilirubin 0.4 mg/dL (0.2-1.0) Direct Bilirubin 0.2 mg/dL (0.0-0.2) Aspartate Amino Transf (AST/SGOT) 20 U/L (15-37) Alanine Aminotransferase (ALT/SGPT) 45 U/L (16-63) Alkaline Phosphatase 58 U/L (46-116) Total Protein 6.7 g/dL (6.4-8.2) Albumin 2.4 g/dL (3.4-5.0) Laboratory Tests Test 02/25/21 11:15 02/25/21 16:40 02/25/21 20:59 02/26/21 06:25 Glucose (Fingerstick) 289 mg/dL (70-99) 280 mg/dL (70-99) 256 mg/dL (70-99) White Blood Count 14.0 x10^3/uL (4.0-11.0) Red Blood Count 4.58 x10^6/uL (4.30-5.70) Hemoglobin 13.7 g/dL (13.0-17.5) Hematocrit 39.7 % (39.0-53.0) Mean Corpuscular Volume 87 fL (79-100) Mean Corpuscular Hemoglobin 30 pg (25-35) Mean Corpuscular Hemoglobin Concent 35 g/dL (31-37) Red Cell Distribution Width 13.9 % (11.5-14.5) Platelet Count 425 x10^3/uL (140-400) Neutrophils (%) (Auto) 81 % (31-73) Lymphocytes (%) (Auto) 11 % (24-48) Monocytes (%) (Auto) 7 % (0-9) Eosinophils (%) (Auto) 0 % (0-3) Basophils (%) (Auto) 0 % (0-3) Neutrophils # (Auto) 11.4 x10^3/uL (1.8-7.7) Lymphocytes # (Auto) 1.6 x10^3/uL (1.0-4.8) Monocytes # (Auto) 1.0 x10^3/uL (0.0-1.1) Eosinophils # (Auto) 0.0 x10^3/uL (0.0-0.7) Basophils # (Auto) 0.0 x10^3/uL (0.0-0.2) Sodium Level 136 mmol/L (136-145) Potassium Level 4.6 mmol/L (3.5-5.1) Chloride Level 103 mmol/L (98-107) Carbon Dioxide Level 26 mmol/L (21-32) Anion Gap 7 (6-14) Blood Urea Nitrogen 20 mg/dL (8-26) Creatinine 0.8 mg/dL (0.7-1.3) Estimated GFR (Cockcroft-Gault) 103.2 Glucose Level 245 mg/dL (70-99) Calcium Level 8.2 mg/dL (8.5-10.1) Total Bilirubin 0.4 mg/dL (0.2-1.0) Direct Bilirubin 0.2 mg/dL (0.0-0.2) Aspartate Amino Transf (AST/SGOT) 20 U/L (15-37) Alanine Aminotransferase (ALT/SGPT) 45 U/L (16-63) Alkaline Phosphatase 58 U/L (46-116) Total Protein 6.7 g/dL (6.4-8.2) Albumin 2.4 g/dL (3.4-5.0) Test 02/26/21 07:40 Glucose (Fingerstick) 250 mg/dL (70-99) Medications Active Scripts Medications Dose Route/Sig Max Daily Dose Days Date Category Levemir (Insulin Detemir) 100 Unit/1 Ml Vial 20 Unit SQ QHS 02/24/21 Reported Glimepiride 4 Mg Tablet 1 Tab PO DAILY 02/24/21 Reported Lansoprazole 30 Mg Capsule. 1 Cap PO DAILY 02/24/21 Reported Atorvastatin Calcium 40 Mg Tablet 1 Tab PO QHS 02/24/21 Reported Lisinopril 30 Mg Tablet 1 Tab PO DAILY 02/24/21 Reported Januvia (Sitagliptin Phosphate) 100 Mg Tablet 1 Tab PO DAILY 02/24/21 Reported Metformin Hcl 1,000 Mg Tablet 1,000 Mg PO BIDWMEALS 02/24/21 Reported Impression . 1. Acute hypoxic respiratory failure secondary to COVID-19 viral pneumonia/early acute respiratory distress syndrome and acute lung injury. 2. No significant tobacco history. 3. Abnormal chest x-ray consistent with viral pneumonia. 4. Increased C-reactive protein. 5. Yvohladt-il-zgdhia protein-calorie malnutrition. Plan . 1. Continue present nonrebreather mask. We will closely watch his respiratory status. 2. May consider adding Vapotherm if desaturates. 3. Continue dexamethasone for a total of 10 days. 4. Continue 5 days of remdesivir. 5. We will also add baricitinib. 6. Discussed with RN. 7. Monitor LFT MESSI CHIRINOS MD Feb 26, 2021 09:14
--- NOTE | 2021-02-26 10:33 | PDOC ---
[facility] PROGRESS NOTE Date of Service DOS: DATE: 02/26/21 TIME: 10:33 Chief Complaint Chief Complaint A/P: Acute respiratory failure with hypoxia COVID-19 pneumonia - remdesivir, daily LFTs, IV Decadron 6 mg daily to complete 10-day, supportive care; zinc, vitamin C, if CRP >75, consulted pulm and in itiated Baricitinib on 02/25 DM2 with hyperglycemia Elevated CK Moderate malnutrition Hyponatremia FEN - ADA diet PPX - Lovenox FULL CODE Dispo - inpatient for above Patient names his (Kacey Brennan) as surrogate decision-maker. History of Present Illness History of Present Illness Mr Brennan is a 46-year-old male with past medical history DM2, HLD, presents to the ED with complaints of worsening shortness of breath. States he was tested positive for COVID-19 5 days ago, and his symptoms have been worsening since that time. He reports associated cough, fever, headache, sore throat, fatigue, body aches, loss of smell, and loss of taste. Upon arrival in the ED he was tachycardic and febrile, with T-max 103.3 F. His oxygen saturation was 80% on room air, which improved with 6 L nasal cannula. Labs on admission showed CBG 295, CK 462, albumin 3.1. He received IV fluids, Rocephin, and IV Decadron. States he did not receive his COVID-19 vaccination as he was concerned that the side effects may make him feel sick. Will admit patient for further medical management. ABG 7.45/34/61 on 6 L nasal cannula 02/25: Febrile 101.4 F overnight glucose in the 200s. Now on 15 L nasal cannula with O2 saturations 96%. CRP returned over 120. Appetite poor Afebrile overnight. Glucose still elevated. Pulmonology consulted and added baricitinib on 02/25/2021. Now on 4 L NC O2 saturations 91% Vitals/I&O Vitals/I&O: Vital Signs Date Time Temp Pulse Resp B/P (MAP) Pulse Ox O2 Delivery O2 Flow Rate FiO2 02/26/21 08:00 Non-Rebreather 15.0 02/26/21 07:15 98.9 76 24 133/74 (93) 97 98.9 I & O 02/25/21 02/25/21 02/26/21 15:00 23:00 07:00 Intake Total 400 ml 300 ml 300 ml Balance 400 ml 300 ml 300 ml Physical Exam General: Alert, Oriented X3, Cooperative, moderate distress Heart: Regular rate, Normal S1, Normal S2 Lungs: Clear Abdomen: Normal bowel sounds, Soft Extremities: No clubbing, No cyanosis Skin: No rashes, No breakdown Labs Labs: Laboratory Tests Test 02/25/21 11:15 02/25/21 16:40 02/25/21 20:59 02/26/21 06:25 Glucose (Fingerstick) 289 mg/dL (70-99) 280 mg/dL (70-99) 256 mg/dL (70-99) White Blood Count 14.0 x10^3/uL (4.0-11.0) Red Blood Count 4.58 x10^6/uL (4.30-5.70) Hemoglobin 13.7 g/dL (13.0-17.5) Hematocrit 39.7 % (39.0-53.0) Mean Corpuscular Volume 87 fL (79-100) Mean Corpuscular Hemoglobin 30 pg (25-35) Mean Corpuscular Hemoglobin Concent 35 g/dL (31-37) Red Cell Distribution Width 13.9 % (11.5-14.5) Platelet Count 425 x10^3/uL (140-400) Neutrophils (%) (Auto) 81 % (31-73) Lymphocytes (%) (Auto) 11 % (24-48) Monocytes (%) (Auto) 7 % (0-9) Eosinophils (%) (Auto) 0 % (0-3) Basophils (%) (Auto) 0 % (0-3) Neutrophils # (Auto) 11.4 x10^3/uL (1.8-7.7) Lymphocytes # (Auto) 1.6 x10^3/uL (1.0-4.8) Monocytes # (Auto) 1.0 x10^3/uL (0.0-1.1) Eosinophils # (Auto) 0.0 x10^3/uL (0.0-0.7) Basophils # (Auto) 0.0 x10^3/uL (0.0-0.2) Sodium Level 136 mmol/L (136-145) Potassium Level 4.6 mmol/L (3.5-5.1) Chloride Level 103 mmol/L (98-107) Carbon Dioxide Level 26 mmol/L (21-32) Anion Gap 7 (6-14) Blood Urea Nitrogen 20 mg/dL (8-26) Creatinine 0.8 mg/dL (0.7-1.3) Estimated GFR (Cockcroft-Gault) 103.2 Glucose Level 245 mg/dL (70-99) Calcium Level 8.2 mg/dL (8.5-10.1) Total Bilirubin 0.4 mg/dL (0.2-1.0) Direct Bilirubin 0.2 mg/dL (0.0-0.2) Aspartate Amino Transf (AST/SGOT) 20 U/L (15-37) Alanine Aminotransferase (ALT/SGPT) 45 U/L (16-63) Alkaline Phosphatase 58 U/L (46-116) Total Protein 6.7 g/dL (6.4-8.2) Albumin 2.4 g/dL (3.4-5.0) Test 02/26/21 07:40 Glucose (Fingerstick) 250 mg/dL (70-99) Assessment and Plan Assessmemt and Plan Problems Medical Problems: (1) Bilateral pneumonia Status: Acute (2) COVID-19 Status: Acute (3) Hypoxia Status: Acute (4) Sepsis Status: Acute Comment Review of Relevant I have reviewed the following items alok (where applicable) has been applied. Medications: Current Medications Medications (Trade) Dose Ordered Sig/Carole Route PRN Reason Start Time Stop Time Status Last Admin Dose Admin Remdesivir 100 mg/ Sodium Chloride 230 ml @ 460 mls/hr Q24H IV 02/25/21 14:00 02/28/21 14:29 02/25/21 15:29 Insulin Glargine (Lantus Syringe) 20 unit QHS SQ 02/25/21 21:00 02/25/21 21:22 Benzonatate (Tessalon Perle) 100 mg [id number] PO 02/25/21 11:00 02/26/21 07:52 Baricitinib (Olumiant) 4 mg DAILY PO 02/25/21 13:00 03/10/21 09:01 02/26/21 07:52 Lactobacillus Rhamnosus (Culturelle) 1 cap BID PO 02/25/21 21:00 02/26/21 07:53 Justifications for Admission Other Justification MYNOR SNOW MD Feb 26, 2021 10:33
[2021-02-26 10:48] VITALS: BP 140/72
[2021-02-26] MEDS: ENOXAPARIN 40 MG/0.4 ML SYRINGE. SQ SCH (11:58)
[2021-02-26] MEDS: REMDESIVIR 100mg in NORMAL SALINE 250ML X 4 DAYS IV SCH (13:18)
[2021-02-26 14:52] VITALS: BP 141/71
[2021-02-26 19:00] VITALS: BP 131/71
[2021-02-26] MEDS: INSULIN GLARGINE SYRINGE. SQ SCH (21:16)
[2021-02-26 23:00] VITALS: BP 120/68
[2021-02-27 03:00] VITALS: BP 116/55
[2021-02-27 07:00] VITALS: BP 126/78
[2021-02-27 07:17] LABS: BASO # 0.1 x10^3/uL (0.0-0.2); BASO % 1 % (0-3); EOS % 0 % (0-3); HEMATOCRIT 42.4 % (39.0-53.0); HEMOGLOBIN 14.7 g/dL (13.0-17.5); LYMPH # 1.9 x10^3/uL (1.0-4.8); LYMPH % 14 % (24-48); MEAN CORPUSCULAR HEMOGLOBIN 30 pg (25-35); MEAN CORPUSCULAR HGB CONC 35 g/dL (31-37); MEAN CORPUSCULAR VOLUME 87 fL (79-100); MONO # 0.8 x10^3/uL (0.0-1.1); MONO % 6 % (0-9); NEUT # 10.8 x10^3/uL (1.8-7.7); NEUT % 79 % (31-73); PLATELET COUNT 429 x10^3/uL (140-400); RED BLOOD COUNT 4.87 x10^6/uL (4.30-5.70); RED CELL DISTRIBUTION WIDTH 13.7 % (11.5-14.5); WHITE BLOOD COUNT 13.6 x10^3/uL (4.0-11.0)
[2021-02-27 07:51] LABS: ALBUMIN 2.5 g/dL (3.4-5.0); CALCIUM 8.6 mg/dL (8.5-10.1); CREATININE 0.8 mg/dL (0.7-1.3); DIRECT BILIRUBIN 0.2 mg/dL (0.0-0.2); GFR 103.2; POTASSIUM 3.9 mmol/L (3.5-5.1); TOTAL BILIRUBIN 0.5 mg/dL (0.2-1.0); TOTAL PROTEIN 6.8 g/dL (6.4-8.2)
[2021-02-27] MEDS: INSULIN LISPRO 300 UNITS/3 ML VIAL. SQ SCH ×6 (08:40→17:44)
[2021-02-27] MEDS: DOXYCYCLINE HYCLATE 100 MG TABLET PO SCH ×2 (08:42→21:04)
[2021-02-27] MEDS: DEXAMETHASONE SOD PHOS 4 MG/ML VIAL IVP SCH (08:42)
[2021-02-27] MEDS: BARICITINIB 2 MG PO SCH (08:42)
[2021-02-27] MEDS: LACTOBACILLUS RHAMNOSUS GG 1 CAPSULE. PO SCH ×2 (08:42→21:04)
[2021-02-27] MEDS: THIAMINE 100 MG TABLET. PO SCH (08:42)
[2021-02-27] MEDS: BENZONATATE 100 MG CAPSULE. PO SCH ×3 (08:42→21:04)
[2021-02-27] MEDS: ZINC SULFATE 220 MG CAPSULE. PO SCH (08:42)
[2021-02-27] MEDS: ASCORBIC ACID 500 MG TABLET PO SCH (08:42)
[2021-02-27] MEDS: cefTRIAXone IV Push 1 GM VIAL. IVP SCH (08:43)
--- NOTE | 2021-02-27 09:29 | PDOC ---
PULMONARY PROGRESS NOTES DATE: 02/27/21 TIME: 09:28 Subjective no increase soa on NRM 100% Vitals Vital Signs Date Time Temp Pulse Resp B/P (MAP) Pulse Ox O2 Delivery O2 Flow Rate FiO2 02/27/21 08:30 Non-Rebreather 15.0 02/27/21 07:00 97.0 67 20 126/78 (94) 97 97.0 General: Alert, No acute distress Lungs: Clear Cardiovascular: S1 Abdomen: Soft Neuro Exam: Alert Extremities: No Edema Labs Laboratory Tests Test 02/25/21 11:15 02/25/21 16:40 02/25/21 20:59 02/26/21 06:25 Glucose (Fingerstick) 289 mg/dL (70-99) 280 mg/dL (70-99) 256 mg/dL (70-99) White Blood Count 14.0 x10^3/uL (4.0-11.0) Red Blood Count 4.58 x10^6/uL (4.30-5.70) Hemoglobin 13.7 g/dL (13.0-17.5) Hematocrit 39.7 % (39.0-53.0) Mean Corpuscular Volume 87 fL (79-100) Mean Corpuscular Hemoglobin 30 pg (25-35) Mean Corpuscular Hemoglobin Concent 35 g/dL (31-37) Red Cell Distribution Width 13.9 % (11.5-14.5) Platelet Count 425 x10^3/uL (140-400) Neutrophils (%) (Auto) 81 % (31-73) Lymphocytes (%) (Auto) 11 % (24-48) Monocytes (%) (Auto) 7 % (0-9) Eosinophils (%) (Auto) 0 % (0-3) Basophils (%) (Auto) 0 % (0-3) Neutrophils # (Auto) 11.4 x10^3/uL (1.8-7.7) Lymphocytes # (Auto) 1.6 x10^3/uL (1.0-4.8) Monocytes # (Auto) 1.0 x10^3/uL (0.0-1.1) Eosinophils # (Auto) 0.0 x10^3/uL (0.0-0.7) Basophils # (Auto) 0.0 x10^3/uL (0.0-0.2) Sodium Level 136 mmol/L (136-145) Potassium Level 4.6 mmol/L (3.5-5.1) Chloride Level 103 mmol/L (98-107) Carbon Dioxide Level 26 mmol/L (21-32) Anion Gap 7 (6-14) Blood Urea Nitrogen 20 mg/dL (8-26) Creatinine 0.8 mg/dL (0.7-1.3) Estimated GFR (Cockcroft-Gault) 103.2 Glucose Level 245 mg/dL (70-99) Calcium Level 8.2 mg/dL (8.5-10.1) Total Bilirubin 0.4 mg/dL (0.2-1.0) Direct Bilirubin 0.2 mg/dL (0.0-0.2) Aspartate Amino Transf (AST/SGOT) 20 U/L (15-37) Alanine Aminotransferase (ALT/SGPT) 45 U/L (16-63) Alkaline Phosphatase 58 U/L (46-116) Total Protein 6.7 g/dL (6.4-8.2) Albumin 2.4 g/dL (3.4-5.0) Test 02/26/21 07:40 02/26/21 11:43 02/26/21 17:06 02/26/21 20:05 Glucose (Fingerstick) 250 mg/dL (70-99) 353 mg/dL (70-99) 303 mg/dL (70-99) 308 mg/dL (70-99) Test 02/27/21 06:45 02/27/21 07:53 White Blood Count 13.6 x10^3/uL (4.0-11.0) Red Blood Count 4.87 x10^6/uL (4.30-5.70) Hemoglobin 14.7 g/dL (13.0-17.5) Hematocrit 42.4 % (39.0-53.0) Mean Corpuscular Volume 87 fL (79-100) Mean Corpuscular Hemoglobin 30 pg (25-35) Mean Corpuscular Hemoglobin Concent 35 g/dL (31-37) Red Cell Distribution Width 13.7 % (11.5-14.5) Platelet Count 429 x10^3/uL (140-400) Neutrophils (%) (Auto) 79 % (31-73) Lymphocytes (%) (Auto) 14 % (24-48) Monocytes (%) (Auto) 6 % (0-9) Eosinophils (%) (Auto) 0 % (0-3) Basophils (%) (Auto) 1 % (0-3) Neutrophils # (Auto) 10.8 x10^3/uL (1.8-7.7) Lymphocytes # (Auto) 1.9 x10^3/uL (1.0-4.8) Monocytes # (Auto) 0.8 x10^3/uL (0.0-1.1) Eosinophils # (Auto) 0.0 x10^3/uL (0.0-0.7) Basophils # (Auto) 0.1 x10^3/uL (0.0-0.2) Sodium Level 139 mmol/L (136-145) Potassium Level 3.9 mmol/L (3.5-5.1) Chloride Level 102 mmol/L (98-107) Carbon Dioxide Level 27 mmol/L (21-32) Anion Gap 10 (6-14) Blood Urea Nitrogen 23 mg/dL (8-26) Creatinine 0.8 mg/dL (0.7-1.3) Estimated GFR (Cockcroft-Gault) 103.2 Glucose Level 148 mg/dL (70-99) Calcium Level 8.6 mg/dL (8.5-10.1) Total Bilirubin 0.5 mg/dL (0.2-1.0) Direct Bilirubin 0.2 mg/dL (0.0-0.2) Aspartate Amino Transf (AST/SGOT) 33 U/L (15-37) Alanine Aminotransferase (ALT/SGPT) 61 U/L (16-63) Alkaline Phosphatase 67 U/L (46-116) C-Reactive Protein, Quantitative 21.6 mg/L (0-3.3) Total Protein 6.8 g/dL (6.4-8.2) Albumin 2.5 g/dL (3.4-5.0) Glucose (Fingerstick) 162 mg/dL (70-99) Laboratory Tests Test 02/26/21 11:43 02/26/21 17:06 02/26/21 20:05 02/27/21 06:45 Glucose (Fingerstick) 353 mg/dL (70-99) 303 mg/dL (70-99) 308 mg/dL (70-99) White Blood Count 13.6 x10^3/uL (4.0-11.0) Red Blood Count 4.87 x10^6/uL (4.30-5.70) Hemoglobin 14.7 g/dL (13.0-17.5) Hematocrit 42.4 % (39.0-53.0) Mean Corpuscular Volume 87 fL (79-100) Mean Corpuscular Hemoglobin 30 pg (25-35) Mean Corpuscular Hemoglobin Concent 35 g/dL (31-37) Red Cell Distribution Width 13.7 % (11.5-14.5) Platelet Count 429 x10^3/uL (140-400) Neutrophils (%) (Auto) 79 % (31-73) Lymphocytes (%) (Auto) 14 % (24-48) Monocytes (%) (Auto) 6 % (0-9) Eosinophils (%) (Auto) 0 % (0-3) Basophils (%) (Auto) 1 % (0-3) Neutrophils # (Auto) 10.8 x10^3/uL (1.8-7.7) Lymphocytes # (Auto) 1.9 x10^3/uL (1.0-4.8) Monocytes # (Auto) 0.8 x10^3/uL (0.0-1.1) Eosinophils # (Auto) 0.0 x10^3/uL (0.0-0.7) Basophils # (Auto) 0.1 x10^3/uL (0.0-0.2) Sodium Level 139 mmol/L (136-145) Potassium Level 3.9 mmol/L (3.5-5.1) Chloride Level 102 mmol/L (98-107) Carbon Dioxide Level 27 mmol/L (21-32) Anion Gap 10 (6-14) Blood Urea Nitrogen 23 mg/dL (8-26) Creatinine 0.8 mg/dL (0.7-1.3) Estimated GFR (Cockcroft-Gault) 103.2 Glucose Level 148 mg/dL (70-99) Calcium Level 8.6 mg/dL (8.5-10.1) Total Bilirubin 0.5 mg/dL (0.2-1.0) Direct Bilirubin 0.2 mg/dL (0.0-0.2) Aspartate Amino Transf (AST/SGOT) 33 U/L (15-37) Alanine Aminotransferase (ALT/SGPT) 61 U/L (16-63) Alkaline Phosphatase 67 U/L (46-116) C-Reactive Protein, Quantitative 21.6 mg/L (0-3.3) Total Protein 6.8 g/dL (6.4-8.2) Albumin 2.5 g/dL (3.4-5.0) Test 02/27/21 07:53 Glucose (Fingerstick) 162 mg/dL (70-99) Medications Active Scripts Medications Dose Route/Sig Max Daily Dose Days Date Category Levemir (Insulin Detemir) 100 Unit/1 Ml Vial 20 Unit SQ QHS 02/24/21 Reported Glimepiride 4 Mg Tablet 1 Tab PO DAILY 02/24/21 Reported Lansoprazole 30 Mg Capsule.dr 1 Cap PO DAILY 02/24/21 Reported Atorvastatin Calcium 40 Mg Tablet 1 Tab PO QHS 02/24/21 Reported Lisinopril 30 Mg Tablet 1 Tab PO DAILY 02/24/21 Reported Januvia (Sitagliptin Phosphate) 100 Mg Tablet 1 Tab PO DAILY 02/24/21 Reported Metformin Hcl 1,000 Mg Tablet 1,000 Mg PO BIDWMEALS 02/24/21 Reported Impression . 1. Acute hypoxic respiratory failure secondary to COVID-19 viral pneumonia/early acute respiratory distress syndrome and acute lung injury. 2. No significant tobacco history. 3. Abnormal chest x-ray consistent with viral pneumonia. 4. Increased C-reactive protein. 5. Iakfvkms-lj-qmpmpq protein-calorie malnutrition. Plan . 1. Continue present nonrebreather mask. We will closely watch his respiratory status. Wean FiO2, keep saturation 92% and above. 2. May consider adding Vapotherm if desaturates. So far stable. 3. Continue dexamethasone for a total of 10 days. 4. Continue 5 days of remdesivir. 5. baricitinib. 6. Discussed with RN. 7. LFT within normal limits MESSI CHIRINOS MD Feb 27, 2021 09:29
--- NOTE | 2021-02-27 10:43 | NUR ---
SW following. Discussed with RN, pt from home with , now down to [id number]. COVID-19 positive. Pt not ready for discharge at this time. SW will continue to follow.
[2021-02-27 11:36] VITALS: BP 137/86
[2021-02-27] MEDS: guaiFENesin DM 200MG/20MG 10 ML SYRUP PO PRN (12:01)
--- NOTE | 2021-02-27 12:39 | PDOC ---
[facility] PROGRESS NOTE Date of Service DOS: DATE: 02/27/21 TIME: 12:35 Chief Complaint Chief Complaint A/P: Acute respiratory failure with hypoxia COVID-19 pneumonia - remdesivir, daily LFTs, IV Decadron 6 mg daily to complete 10-day, supportive care; zinc, vitamin C, if CRP >75, consulted pulm and in itiated Baricitinib on 02/25 DM2 with hyperglycemia Elevated CK Moderate malnutrition Hyponatremia FEN - ADA diet PPX - Lovenox FULL CODE Dispo - inpatient for above Patient names his (Kcaey Brennan) as surrogate decision-maker. History of Present Illness History of Present Illness Mr Brennan is a 46-year-old male with past medical history DM2, HLD, presents to the ED with complaints of worsening shortness of breath. States he was tested positive for COVID-19 5 days ago, and his symptoms have been worsening since that time. He reports associated cough, fever, headache, sore throat, fatigue, body aches, loss of smell, and loss of taste. Upon arrival in the ED he was tachycardic and febrile, with T-max 103.3 F. His oxygen saturation was 80% on room air, which improved with 6 L nasal cannula. Labs on admission showed CBG 295, CK 462, albumin 3.1. He received IV fluids, Rocephin, and IV Decadron. States he did not receive his COVID-19 vaccination as he was concerned that the side effects may make him feel sick. Will admit patient for further medical management. ABG 7.45/34/61 on 6 L nasal cannula 02/25: Febrile 101.4 F overnight glucose in the 200s. Now on 15 L nasal cannula with O2 saturations 96%. CRP returned over 120. Appetite poor 02/26: Afebrile overnight. Glucose still elevated. Pulmonology consulted and added baricitinib on 02/25/2021. Now on 10 L NC O2 saturations 91% Afebrile. Labs improved. Improved. His cough is a lot more rough today and he continues to take off his oxygen is 90 has an appetite. In his room patient was with O2 saturation 77%. Placed on nasal cannula and O2 saturations came up on 12 L to 91%. Vitals/I&O Vitals/I&O: Vital Signs Date Time Temp Pulse Resp B/P (MAP) Pulse Ox O2 Delivery O2 Flow Rate FiO2 02/27/21 11:36 99.2 76 20 137/86 (103) 93 NonRebreather Mask 13.0 99.2 I & O 02/26/21 02/26/21 02/27/21 15:00 23:00 07:00 Intake Total 480 ml 360 ml Balance 480 ml 360 ml Physical Exam General: Alert, Oriented X3, Cooperative, moderate distress Heart: Regular rate, Normal S1, Normal S2 Lungs: Clear Abdomen: Normal bowel sounds, Soft Extremities: No clubbing, No cyanosis Skin: No rashes, No breakdown Labs Labs: Laboratory Tests Test 02/26/21 17:06 02/26/21 20:05 02/27/21 06:45 02/27/21 07:53 Glucose (Fingerstick) 303 mg/dL (70-99) 308 mg/dL (70-99) 162 mg/dL (70-99) White Blood Count 13.6 x10^3/uL (4.0-11.0) Red Blood Count 4.87 x10^6/uL (4.30-5.70) Hemoglobin 14.7 g/dL (13.0-17.5) Hematocrit 42.4 % (39.0-53.0) Mean Corpuscular Volume 87 fL (79-100) Mean Corpuscular Hemoglobin 30 pg (25-35) Mean Corpuscular Hemoglobin Concent 35 g/dL (31-37) Red Cell Distribution Width 13.7 % (11.5-14.5) Platelet Count 429 x10^3/uL (140-400) Neutrophils (%) (Auto) 79 % (31-73) Lymphocytes (%) (Auto) 14 % (24-48) Monocytes (%) (Auto) 6 % (0-9) Eosinophils (%) (Auto) 0 % (0-3) Basophils (%) (Auto) 1 % (0-3) Neutrophils # (Auto) 10.8 x10^3/uL (1.8-7.7) Lymphocytes # (Auto) 1.9 x10^3/uL (1.0-4.8) Monocytes # (Auto) 0.8 x10^3/uL (0.0-1.1) Eosinophils # (Auto) 0.0 x10^3/uL (0.0-0.7) Basophils # (Auto) 0.1 x10^3/uL (0.0-0.2) Sodium Level 139 mmol/L (136-145) Potassium Level 3.9 mmol/L (3.5-5.1) Chloride Level 102 mmol/L (98-107) Carbon Dioxide Level 27 mmol/L (21-32) Anion Gap 10 (6-14) Blood Urea Nitrogen 23 mg/dL (8-26) Creatinine 0.8 mg/dL (0.7-1.3) Estimated GFR (Cockcroft-Gault) 103.2 Glucose Level 148 mg/dL (70-99) Calcium Level 8.6 mg/dL (8.5-10.1) Total Bilirubin 0.5 mg/dL (0.2-1.0) Direct Bilirubin 0.2 mg/dL (0.0-0.2) Aspartate Amino Transf (AST/SGOT) 33 U/L (15-37) Alanine Aminotransferase (ALT/SGPT) 61 U/L (16-63) Alkaline Phosphatase 67 U/L (46-116) C-Reactive Protein, Quantitative 21.6 mg/L (0-3.3) Total Protein 6.8 g/dL (6.4-8.2) Albumin 2.5 g/dL (3.4-5.0) Test 02/27/21 11:14 Glucose (Fingerstick) 191 mg/dL (70-99) Assessment and Plan Assessmemt and Plan Problems Medical Problems: (1) Bilateral pneumonia Status: Acute (2) COVID-19 Status: Acute (3) Hypoxia Status: Acute (4) Sepsis Status: Acute Comment Review of Relevant I have reviewed the following items alok (where applicable) has been applied. Justifications for Admission Other Justification MYNOR SNOW MD Feb 27, 2021 12:39
[2021-02-27] MEDS: REMDESIVIR 100mg in NORMAL SALINE 250ML X 4 DAYS IV SCH (14:04)
[2021-02-27 15:00] VITALS: BP 131/71
--- NOTE | 2021-02-27 15:06 | NUR ---
Pt transferred to room 514 via bed at 1505 for continuous O2 monitoring. Pt remains on 13L per nonrebreather. This RN gave telephone report to CARLEE Castle at [phone]. Belongings with pt.
--- NOTE | 2021-02-27 15:10 | NUR ---
Pt arrived to room 514 per bed. Sat 91% on 13L non rebreather. Discussed with pt the importance of staying on the oxygen at all times. He verbalized understanding.
[2021-02-27] MEDS: ENOXAPARIN 40 MG/0.4 ML SYRINGE. SQ SCH (17:47)
[2021-02-27 19:00] VITALS: BP 125/71
[2021-02-27] MEDS: INSULIN GLARGINE SYRINGE. SQ SCH (21:04)
[2021-02-27 23:00] VITALS: BP 118/70
[2021-02-28 03:00] VITALS: BP 111/68
[2021-02-28 07:00] VITALS: BP 112/59
[2021-02-28 07:15] LABS: ALBUMIN 2.5 g/dL (3.4-5.0); CALCIUM 8.7 mg/dL (8.5-10.1); CREATININE 0.8 mg/dL (0.7-1.3); DIRECT BILIRUBIN 0.2 mg/dL (0.0-0.2); GFR 103.2; POTASSIUM 4.3 mmol/L (3.5-5.1); TOTAL BILIRUBIN 0.5 mg/dL (0.2-1.0)
[2021-02-28 07:51] LABS: BASO % 0 % (0-3); EOS # 0.1 x10^3/uL (0.0-0.7); EOS % 1 % (0-3); HEMATOCRIT 42.6 % (39.0-53.0); HEMOGLOBIN 14.7 g/dL (13.0-17.5); LYMPH # 2.1 x10^3/uL (1.0-4.8); LYMPH % 16 % (24-48); MEAN CORPUSCULAR HEMOGLOBIN 30 pg (25-35); MEAN CORPUSCULAR HGB CONC 35 g/dL (31-37); MEAN CORPUSCULAR VOLUME 87 fL (79-100); MONO # 0.9 x10^3/uL (0.0-1.1); MONO % 7 % (0-9); NEUT # 10.3 x10^3/uL (1.8-7.7); NEUT % 77 % (31-73); PLATELET COUNT 347 x10^3/uL (140-400); RED BLOOD COUNT 4.92 x10^6/uL (4.30-5.70); WHITE BLOOD COUNT 13.4 x10^3/uL (4.0-11.0)
--- NOTE | 2021-02-28 07:58 | PDOC ---
[facility] PROGRESS NOTE Date of Service DOS: DATE: 02/28/21 TIME: 07:58 Chief Complaint Chief Complaint A/P: Acute respiratory failure with hypoxia COVID-19 pneumonia - remdesivir, daily LFTs, IV Decadron 6 mg daily to complete 10-day, supportive care; zinc, vitamin C, CRP >75 and LFTs elevated, consulted pulm and initiated Baricitinib on 02/25 DM2 with hyperglycemia Elevated CK Severe protein calorie malnutrition Hyponatremia FEN - ADA diet PPX - Lovenox FULL CODE Dispo - inpatient for above Patient names his (Kacey Brennan) as surrogate decision-maker. History of Present Illness History of Present Illness Mr Brennan is a 46-year-old male with past medical history DM2, HLD, presents to the ED with complaints of worsening shortness of breath. States he was tested positive for COVID-19 5 days ago, and his symptoms have been worsening since that time. He reports associated cough, fever, headache, sore throat, fatigue, body aches, loss of smell, and loss of taste. Upon arrival in the ED he was tachycardic and febrile, with T-max 103.3 F. His oxygen saturation was 80% on room air, which improved with 6 L nasal cannula. Labs on admission showed CBG 295, CK 462, albumin 3.1. He received IV fluids, Rocephin, and IV Decadron. States he did not receive his COVID-19 vaccination as he was concerned that the side effects may make him feel sick. Will admit patient for further medical management. ABG 7.45/34/61 on 6 L nasal cannula 02/25: Febrile 101.4 F overnight glucose in the 200s. Now on 15 L nasal cannula with O2 saturations 96%. CRP returned over 120. Appetite poor 02/26: Afebrile overnight. Glucose still elevated. Pulmonology consulted and added baricitinib on 02/25/2021. Now on 10 L NC O2 saturations 91% 02/27: Afebrile. Labs improved. Improved. His cough is a lot more rough today and he continues to take off his oxygen is 90 has an appetite. In his room patient was with O2 saturation 77%. Placed on nasal cannula and O2 saturations came up on 12 L to 91%. Afebrile. Labs stable. Still with a painful cough. Is eating a little better. On facemask O2 10 L/min and saturations 93%. Glucose in 200s. Vitals/I&O Vitals/I&O: Vital Signs Date Time Temp Pulse Resp B/P (MAP) Pulse Ox O2 Delivery O2 Flow Rate FiO2 02/28/21 03:00 98.7 74 18 111/68 (82) 97 98.7 02/27/21 20:20 Non-Rebreather 15.0 I & O 02/27/21 02/27/21 02/28/21 15:00 23:00 07:00 Intake Total 880 ml 400 ml 480 ml Balance 880 ml 400 ml 480 ml Physical Exam General: Alert, Oriented X3, Cooperative, moderate distress Heart: Regular rate, Normal S1, Normal S2 Lungs: Clear Abdomen: Normal bowel sounds, Soft Extremities: No clubbing, No cyanosis Skin: No rashes, No breakdown Labs Labs: Laboratory Tests Test 02/27/21 11:14 02/27/21 17:06 02/28/21 06:10 Glucose (Fingerstick) 191 mg/dL (70-99) 322 mg/dL (70-99) Sodium Level 137 mmol/L (136-145) Potassium Level 4.3 mmol/L (3.5-5.1) Chloride Level 100 mmol/L (98-107) Carbon Dioxide Level 28 mmol/L (21-32) Anion Gap 9 (6-14) Blood Urea Nitrogen 17 mg/dL (8-26) Creatinine 0.8 mg/dL (0.7-1.3) Estimated GFR (Cockcroft-Gault) 103.2 Glucose Level 163 mg/dL (70-99) Calcium Level 8.7 mg/dL (8.5-10.1) Total Bilirubin 0.5 mg/dL (0.2-1.0) Direct Bilirubin 0.2 mg/dL (0.0-0.2) Aspartate Amino Transf (AST/SGOT) 19 U/L (15-37) Alanine Aminotransferase (ALT/SGPT) 60 U/L (16-63) Alkaline Phosphatase 71 U/L (46-116) Total Protein 7.0 g/dL (6.4-8.2) Albumin 2.5 g/dL (3.4-5.0) Assessment and Plan Assessmemt and Plan Problems Medical Problems: (1) Bilateral pneumonia Status: Acute (2) COVID-19 Status: Acute (3) Hypoxia Status: Acute (4) Sepsis Status: Acute Comment Review of Relevant I have reviewed the following items alok (where applicable) has been applied. Justifications for Admission Other Justification MYNOR SNOW MD Feb 28, 2021 07:58
[2021-02-28] MEDS: BENZONATATE 100 MG CAPSULE. PO SCH ×3 (08:37→21:37)
[2021-02-28] MEDS: cefTRIAXone IV Push 1 GM VIAL. IVP SCH (08:37)
[2021-02-28] MEDS: DEXAMETHASONE SOD PHOS 4 MG/ML VIAL IVP SCH (08:37)
[2021-02-28] MEDS: LACTOBACILLUS RHAMNOSUS GG 1 CAPSULE. PO SCH ×2 (08:37→21:37)
[2021-02-28] MEDS: THIAMINE 100 MG TABLET. PO SCH (08:38)
[2021-02-28] MEDS: BARICITINIB 2 MG PO SCH (08:38)
[2021-02-28] MEDS: DOXYCYCLINE HYCLATE 100 MG TABLET PO SCH ×2 (08:38→21:37)
[2021-02-28] MEDS: ASCORBIC ACID 500 MG TABLET PO SCH (08:38)
[2021-02-28] MEDS: ZINC SULFATE 220 MG CAPSULE. PO SCH (08:38)
[2021-02-28] MEDS: INSULIN LISPRO 300 UNITS/3 ML VIAL. SQ SCH ×6 (08:45→17:08)
--- NOTE | 2021-02-28 10:33 | NUR ---
SW following. Discussed with RN, pt transferred from 572, COVID-19 positive. Pt on 15L NRB plus 5L NC. Pt not ready for discharge. SW will continue to follow.
[2021-02-28 11:00] VITALS: BP 130/74
--- NOTE | 2021-02-28 11:12 | PDOC ---
PULMONARY PROGRESS NOTES DATE: 02/28/21 TIME: 11:11 Subjective no increase soa on NRM 100% Vitals Vital Signs Date Time Temp Pulse Resp B/P (MAP) Pulse Ox O2 Delivery O2 Flow Rate FiO2 02/28/21 07:00 98.5 84 22 112/59 (76) 89 98.5 02/27/21 20:20 Non-Rebreather 15.0 General: Alert, No acute distress Lungs: Clear Cardiovascular: S1 Abdomen: Soft Neuro Exam: Alert Extremities: No Edema Labs Laboratory Tests Test 02/26/21 11:43 02/26/21 17:06 02/26/21 20:05 02/27/21 06:45 Glucose (Fingerstick) 353 mg/dL (70-99) 303 mg/dL (70-99) 308 mg/dL (70-99) White Blood Count 13.6 x10^3/uL (4.0-11.0) Red Blood Count 4.87 x10^6/uL (4.30-5.70) Hemoglobin 14.7 g/dL (13.0-17.5) Hematocrit 42.4 % (39.0-53.0) Mean Corpuscular Volume 87 fL (79-100) Mean Corpuscular Hemoglobin 30 pg (25-35) Mean Corpuscular Hemoglobin Concent 35 g/dL (31-37) Red Cell Distribution Width 13.7 % (11.5-14.5) Platelet Count 429 x10^3/uL (140-400) Neutrophils (%) (Auto) 79 % (31-73) Lymphocytes (%) (Auto) 14 % (24-48) Monocytes (%) (Auto) 6 % (0-9) Eosinophils (%) (Auto) 0 % (0-3) Basophils (%) (Auto) 1 % (0-3) Neutrophils # (Auto) 10.8 x10^3/uL (1.8-7.7) Lymphocytes # (Auto) 1.9 x10^3/uL (1.0-4.8) Monocytes # (Auto) 0.8 x10^3/uL (0.0-1.1) Eosinophils # (Auto) 0.0 x10^3/uL (0.0-0.7) Basophils # (Auto) 0.1 x10^3/uL (0.0-0.2) Sodium Level 139 mmol/L (136-145) Potassium Level 3.9 mmol/L (3.5-5.1) Chloride Level 102 mmol/L (98-107) Carbon Dioxide Level 27 mmol/L (21-32) Anion Gap 10 (6-14) Blood Urea Nitrogen 23 mg/dL (8-26) Creatinine 0.8 mg/dL (0.7-1.3) Estimated GFR (Cockcroft-Gault) 103.2 Glucose Level 148 mg/dL (70-99) Calcium Level 8.6 mg/dL (8.5-10.1) Total Bilirubin 0.5 mg/dL (0.2-1.0) Direct Bilirubin 0.2 mg/dL (0.0-0.2) Aspartate Amino Transf (AST/SGOT) 33 U/L (15-37) Alanine Aminotransferase (ALT/SGPT) 61 U/L (16-63) Alkaline Phosphatase 67 U/L (46-116) C-Reactive Protein, Quantitative 21.6 mg/L (0-3.3) Total Protein 6.8 g/dL (6.4-8.2) Albumin 2.5 g/dL (3.4-5.0) Test 02/27/21 07:53 02/27/21 11:14 02/27/21 17:06 02/28/21 06:10 Glucose (Fingerstick) 162 mg/dL (70-99) 191 mg/dL (70-99) 322 mg/dL (70-99) White Blood Count 13.4 x10^3/uL (4.0-11.0) Red Blood Count 4.92 x10^6/uL (4.30-5.70) Hemoglobin 14.7 g/dL (13.0-17.5) Hematocrit 42.6 % (39.0-53.0) Mean Corpuscular Volume 87 fL (79-100) Mean Corpuscular Hemoglobin 30 pg (25-35) Mean Corpuscular Hemoglobin Concent 35 g/dL (31-37) Red Cell Distribution Width 14.0 % (11.5-14.5) Platelet Count 347 x10^3/uL (140-400) Neutrophils (%) (Auto) 77 % (31-73) Lymphocytes (%) (Auto) 16 % (24-48) Monocytes (%) (Auto) 7 % (0-9) Eosinophils (%) (Auto) 1 % (0-3) Basophils (%) (Auto) 0 % (0-3) Neutrophils # (Auto) 10.3 x10^3/uL (1.8-7.7) Lymphocytes # (Auto) 2.1 x10^3/uL (1.0-4.8) Monocytes # (Auto) 0.9 x10^3/uL (0.0-1.1) Eosinophils # (Auto) 0.1 x10^3/uL (0.0-0.7) Basophils # (Auto) 0.0 x10^3/uL (0.0-0.2) Sodium Level 137 mmol/L (136-145) Potassium Level 4.3 mmol/L (3.5-5.1) Chloride Level 100 mmol/L (98-107) Carbon Dioxide Level 28 mmol/L (21-32) Anion Gap 9 (6-14) Blood Urea Nitrogen 17 mg/dL (8-26) Creatinine 0.8 mg/dL (0.7-1.3) Estimated GFR (Cockcroft-Gault) 103.2 Glucose Level 163 mg/dL (70-99) Calcium Level 8.7 mg/dL (8.5-10.1) Total Bilirubin 0.5 mg/dL (0.2-1.0) Direct Bilirubin 0.2 mg/dL (0.0-0.2) Aspartate Amino Transf (AST/SGOT) 19 U/L (15-37) Alanine Aminotransferase (ALT/SGPT) 60 U/L (16-63) Alkaline Phosphatase 71 U/L (46-116) Total Protein 7.0 g/dL (6.4-8.2) Albumin 2.5 g/dL (3.4-5.0) Test 02/28/21 08:08 Glucose (Fingerstick) 195 mg/dL (70-99) Laboratory Tests Test 02/27/21 11:14 02/27/21 17:06 02/28/21 06:10 02/28/21 08:08 Glucose (Fingerstick) 191 mg/dL (70-99) 322 mg/dL (70-99) 195 mg/dL (70-99) White Blood Count 13.4 x10^3/uL (4.0-11.0) Red Blood Count 4.92 x10^6/uL (4.30-5.70) Hemoglobin 14.7 g/dL (13.0-17.5) Hematocrit 42.6 % (39.0-53.0) Mean Corpuscular Volume 87 fL (79-100) Mean Corpuscular Hemoglobin 30 pg (25-35) Mean Corpuscular Hemoglobin Concent 35 g/dL (31-37) Red Cell Distribution Width 14.0 % (11.5-14.5) Platelet Count 347 x10^3/uL (140-400) Neutrophils (%) (Auto) 77 % (31-73) Lymphocytes (%) (Auto) 16 % (24-48) Monocytes (%) (Auto) 7 % (0-9) Eosinophils (%) (Auto) 1 % (0-3) Basophils (%) (Auto) 0 % (0-3) Neutrophils # (Auto) 10.3 x10^3/uL (1.8-7.7) Lymphocytes # (Auto) 2.1 x10^3/uL (1.0-4.8) Monocytes # (Auto) 0.9 x10^3/uL (0.0-1.1) Eosinophils # (Auto) 0.1 x10^3/uL (0.0-0.7) Basophils # (Auto) 0.0 x10^3/uL (0.0-0.2) Sodium Level 137 mmol/L (136-145) Potassium Level 4.3 mmol/L (3.5-5.1) Chloride Level 100 mmol/L (98-107) Carbon Dioxide Level 28 mmol/L (21-32) Anion Gap 9 (6-14) Blood Urea Nitrogen 17 mg/dL (8-26) Creatinine 0.8 mg/dL (0.7-1.3) Estimated GFR (Cockcroft-Gault) 103.2 Glucose Level 163 mg/dL (70-99) Calcium Level 8.7 mg/dL (8.5-10.1) Total Bilirubin 0.5 mg/dL (0.2-1.0) Direct Bilirubin 0.2 mg/dL (0.0-0.2) Aspartate Amino Transf (AST/SGOT) 19 U/L (15-37) Alanine Aminotransferase (ALT/SGPT) 60 U/L (16-63) Alkaline Phosphatase 71 U/L (46-116) Total Protein 7.0 g/dL (6.4-8.2) Albumin 2.5 g/dL (3.4-5.0) Medications Active Scripts Medications Dose Route/Sig Max Daily Dose Days Date Category Levemir (Insulin Detemir) 100 Unit/1 Ml Vial 20 Unit SQ QHS 02/24/21 Reported Glimepiride 4 Mg Tablet 1 Tab PO DAILY 02/24/21 Reported Lansoprazole 30 Mg Capsule.dr 1 Cap PO DAILY 02/24/21 Reported Atorvastatin Calcium 40 Mg Tablet 1 Tab PO QHS 02/24/21 Reported Lisinopril 30 Mg Tablet 1 Tab PO DAILY 02/24/21 Reported Januvia (Sitagliptin Phosphate) 100 Mg Tablet 1 Tab PO DAILY 02/24/21 Reported Metformin Hcl 1,000 Mg Tablet 1,000 Mg PO BIDWMEALS 02/24/21 Reported Impression . 1. Acute hypoxic respiratory failure secondary to COVID-19 viral pneumonia/early acute respiratory distress syndrome and acute lung injury. 2. No significant tobacco history. 3. Abnormal chest x-ray consistent with viral pneumonia. 4. Increased C-reactive protein. 5. [id number] protein-calorie malnutrition. Plan . 1. Continue present nonrebreather mask. We will closely watch his respiratory status. Wean FiO2, keep saturation 92% and above. 2. May consider adding Vapotherm if desaturates. So far stable. 3. Continue dexamethasone for a total of 10 days. 4. Continue 5 days of remdesivir. 5. baricitinib. 6. Discussed with RN. 7. LFT within normal limits MESSI CHIRINOS MD Feb 28, 2021 11:12
[2021-02-28] MEDS: REMDESIVIR 100mg in NORMAL SALINE 250ML X 4 DAYS IV SCH (14:36)
[2021-02-28] MEDS: ENOXAPARIN 40 MG/0.4 ML SYRINGE. SQ SCH (14:52)
[2021-02-28 15:00] VITALS: BP 132/71
[2021-02-28 19:00] VITALS: BP 118/66
[2021-02-28] MEDS: INSULIN GLARGINE SYRINGE. SQ SCH (21:37)
[2021-02-28 23:00] VITALS: BP 120/69
[2021-03-01 03:00] VITALS: BP 99/55
--- NOTE | 2021-03-01 06:39 | PDOC ---
PULMONARY PROGRESS NOTES DATE: 03/01/21 TIME: 06:38 Subjective no increase soa slightly better on NRM 100% Vitals Vital Signs Date Time Temp Pulse Resp B/P (MAP) Pulse Ox O2 Delivery O2 Flow Rate FiO2 03/01/21 03:00 96.5 68 30 99/55 (70) 90 NonRebreather Mask 13.0 96.5 General: Alert, No acute distress Lungs: Clear Cardiovascular: S1 Abdomen: Soft Neuro Exam: Alert Extremities: No Edema Labs Laboratory Tests Test 02/27/21 06:45 02/27/21 07:53 02/27/21 11:14 02/27/21 17:06 White Blood Count 13.6 x10^3/uL (4.0-11.0) Red Blood Count 4.87 x10^6/uL (4.30-5.70) Hemoglobin 14.7 g/dL (13.0-17.5) Hematocrit 42.4 % (39.0-53.0) Mean Corpuscular Volume 87 fL (79-100) Mean Corpuscular Hemoglobin 30 pg (25-35) Mean Corpuscular Hemoglobin Concent 35 g/dL (31-37) Red Cell Distribution Width 13.7 % (11.5-14.5) Platelet Count 429 x10^3/uL (140-400) Neutrophils (%) (Auto) 79 % (31-73) Lymphocytes (%) (Auto) 14 % (24-48) Monocytes (%) (Auto) 6 % (0-9) Eosinophils (%) (Auto) 0 % (0-3) Basophils (%) (Auto) 1 % (0-3) Neutrophils # (Auto) 10.8 x10^3/uL (1.8-7.7) Lymphocytes # (Auto) 1.9 x10^3/uL (1.0-4.8) Monocytes # (Auto) 0.8 x10^3/uL (0.0-1.1) Eosinophils # (Auto) 0.0 x10^3/uL (0.0-0.7) Basophils # (Auto) 0.1 x10^3/uL (0.0-0.2) Sodium Level 139 mmol/L (136-145) Potassium Level 3.9 mmol/L (3.5-5.1) Chloride Level 102 mmol/L (98-107) Carbon Dioxide Level 27 mmol/L (21-32) Anion Gap 10 (6-14) Blood Urea Nitrogen 23 mg/dL (8-26) Creatinine 0.8 mg/dL (0.7-1.3) Estimated GFR (Cockcroft-Gault) 103.2 Glucose Level 148 mg/dL (70-99) Calcium Level 8.6 mg/dL (8.5-10.1) Total Bilirubin 0.5 mg/dL (0.2-1.0) Direct Bilirubin 0.2 mg/dL (0.0-0.2) Aspartate Amino Transf (AST/SGOT) 33 U/L (15-37) Alanine Aminotransferase (ALT/SGPT) 61 U/L (16-63) Alkaline Phosphatase 67 U/L (46-116) C-Reactive Protein, Quantitative 21.6 mg/L (0-3.3) Total Protein 6.8 g/dL (6.4-8.2) Albumin 2.5 g/dL (3.4-5.0) Glucose (Fingerstick) 162 mg/dL (70-99) 191 mg/dL (70-99) 322 mg/dL (70-99) Test 02/28/21 06:10 02/28/21 08:08 02/28/21 11:26 02/28/21 17:03 White Blood Count 13.4 x10^3/uL (4.0-11.0) Red Blood Count 4.92 x10^6/uL (4.30-5.70) Hemoglobin 14.7 g/dL (13.0-17.5) Hematocrit 42.6 % (39.0-53.0) Mean Corpuscular Volume 87 fL (79-100) Mean Corpuscular Hemoglobin 30 pg (25-35) Mean Corpuscular Hemoglobin Concent 35 g/dL (31-37) Red Cell Distribution Width 14.0 % (11.5-14.5) Platelet Count 347 x10^3/uL (140-400) Neutrophils (%) (Auto) 77 % (31-73) Lymphocytes (%) (Auto) 16 % (24-48) Monocytes (%) (Auto) 7 % (0-9) Eosinophils (%) (Auto) 1 % (0-3) Basophils (%) (Auto) 0 % (0-3) Neutrophils # (Auto) 10.3 x10^3/uL (1.8-7.7) Lymphocytes # (Auto) 2.1 x10^3/uL (1.0-4.8) Monocytes # (Auto) 0.9 x10^3/uL (0.0-1.1) Eosinophils # (Auto) 0.1 x10^3/uL (0.0-0.7) Basophils # (Auto) 0.0 x10^3/uL (0.0-0.2) Sodium Level 137 mmol/L (136-145) Potassium Level 4.3 mmol/L (3.5-5.1) Chloride Level 100 mmol/L (98-107) Carbon Dioxide Level 28 mmol/L (21-32) Anion Gap 9 (6-14) Blood Urea Nitrogen 17 mg/dL (8-26) Creatinine 0.8 mg/dL (0.7-1.3) Estimated GFR (Cockcroft-Gault) 103.2 Glucose Level 163 mg/dL (70-99) Calcium Level 8.7 mg/dL (8.5-10.1) Total Bilirubin 0.5 mg/dL (0.2-1.0) Direct Bilirubin 0.2 mg/dL (0.0-0.2) Aspartate Amino Transf (AST/SGOT) 19 U/L (15-37) Alanine Aminotransferase (ALT/SGPT) 60 U/L (16-63) Alkaline Phosphatase 71 U/L (46-116) Total Protein 7.0 g/dL (6.4-8.2) Albumin 2.5 g/dL (3.4-5.0) Glucose (Fingerstick) 195 mg/dL (70-99) 258 mg/dL (70-99) 359 mg/dL (70-99) Test 02/28/21 19:40 Glucose (Fingerstick) 297 mg/dL (70-99) Laboratory Tests Test 02/28/21 08:08 02/28/21 11:26 02/28/21 17:03 02/28/21 19:40 Glucose (Fingerstick) 195 mg/dL (70-99) 258 mg/dL (70-99) 359 mg/dL (70-99) 297 mg/dL (70-99) Medications Active Scripts Medications Dose Route/Sig Max Daily Dose Days Date Category Levemir (Insulin Detemir) 100 Unit/1 Ml Vial 20 Unit SQ QHS 02/24/21 Reported Glimepiride 4 Mg Tablet 1 Tab PO DAILY 02/24/21 Reported Lansoprazole 30 Mg Capsule.dr 1 Cap PO DAILY 02/24/21 Reported Atorvastatin Calcium 40 Mg Tablet 1 Tab PO QHS 02/24/21 Reported Lisinopril 30 Mg Tablet 1 Tab PO DAILY 02/24/21 Reported Januvia (Sitagliptin Phosphate) 100 Mg Tablet 1 Tab PO DAILY 02/24/21 Reported Metformin Hcl 1,000 Mg Tablet 1,000 Mg PO BIDWMEALS 02/24/21 Reported Impression . 1. Acute hypoxic respiratory failure secondary to COVID-19 viral pneumonia/early acute respiratory distress syndrome and acute lung injury. 2. No significant tobacco history. 3. Abnormal chest x-ray consistent with viral pneumonia. 4. Increased C-reactive protein. 5. Ymwgerwr-th-cpdxmq protein-calorie malnutrition. Plan . 1. Continue present nonrebreather mask. monitor respiratory status closely titrated FiO2 to keep saturation 90% and above. 2. May need Vapotherm if desaturates. So far stable. 3. Continue dexamethasone for a total of 10 days. 4. Continue 5 days of remdesivir. 5. baricitinib. 6. Discussed with RN. 7. LFT within normal limits CATHRYN CULLEN MD Mar 01, 2021 06:39
[2021-03-01 07:00] VITALS: BP 103/65
[2021-03-01 07:39] LABS: BASO % 0 % (0-3); EOS # 0.3 x10^3/uL (0.0-0.7); EOS % 2 % (0-3); HEMATOCRIT 42.9 % (39.0-53.0); HEMOGLOBIN 14.6 g/dL (13.0-17.5); LYMPH # 2.1 x10^3/uL (1.0-4.8); LYMPH % 12 % (24-48); MEAN CORPUSCULAR HEMOGLOBIN 30 pg (25-35); MEAN CORPUSCULAR HGB CONC 34 g/dL (31-37); MEAN CORPUSCULAR VOLUME 88 fL (79-100); MONO # 1.1 x10^3/uL (0.0-1.1); MONO % 6 % (0-9); NEUT # 14.2 x10^3/uL (1.8-7.7); NEUT % 80 % (31-73); PLATELET COUNT 339 x10^3/uL (140-400); RED CELL DISTRIBUTION WIDTH 13.9 % (11.5-14.5); WHITE BLOOD COUNT 17.7 x10^3/uL (4.0-11.0)
[2021-03-01] MEDS: INSULIN LISPRO 300 UNITS/3 ML VIAL. SQ SCH ×6 (08:51→17:46)
[2021-03-01] MEDS: DOXYCYCLINE HYCLATE 100 MG TABLET PO SCH (08:52)
[2021-03-01] MEDS: BARICITINIB 2 MG PO SCH (08:52)
[2021-03-01] MEDS: ASCORBIC ACID 500 MG TABLET PO SCH (08:52)
[2021-03-01] MEDS: cefTRIAXone IV Push 1 GM VIAL. IVP SCH (08:53)
[2021-03-01] MEDS: LACTOBACILLUS RHAMNOSUS GG 1 CAPSULE. PO SCH ×2 (08:53→21:44)
[2021-03-01] MEDS: ZINC SULFATE 220 MG CAPSULE. PO SCH (08:53)
[2021-03-01] MEDS: DEXAMETHASONE SOD PHOS 4 MG/ML VIAL IVP SCH (08:53)
[2021-03-01] MEDS: THIAMINE 100 MG TABLET. PO SCH (08:53)
[2021-03-01] MEDS: BENZONATATE 100 MG CAPSULE. PO SCH ×3 (08:53→21:44)
[2021-03-01 09:53] LABS: C-REACTIVE PROTEIN 49.7 mg/L (0-3.3); CALCIUM 8.7 mg/dL (8.5-10.1); CREATININE 0.7 mg/dL (0.7-1.3); GFR 120.4; POTASSIUM 4.1 mmol/L (3.5-5.1)
[2021-03-01 11:00] VITALS: BP 114/69
[2021-03-01] MEDS: guaiFENesin DM 200MG/20MG 10 ML SYRUP PO PRN (12:28)
[2021-03-01 15:00] VITALS: BP 106/65
[2021-03-01] MEDS: ENOXAPARIN 40 MG/0.4 ML SYRINGE. SQ SCH (15:05)
--- NOTE | 2021-03-01 15:15 | PDOC ---
GENERAL General: Patient examined chart reviewed today's hospital day 6 for this patient with acute hypoxic respiratory failure secondary to Covid pneumonia. He has re sponded nicely to therapies. We appreciate pulmonary support. He is on a multifaceted anti-Covid regimen including an antirheumatic medication for inflammation. Sugar levels are high. We will increase his glargine to 30 units at bedtime. Still requiring significant oxygen but coming down. Patient is without new complaint today. Time spent today is 30 minutes with greater than 50% in counseling and coordination of care most of which in discussion with patient. The patient was seen in full isolation gear including N95 respirator covered with a surgical mask, goggles covering eyewear, and contact isolation robe and hair cover. Problems: (1) Hypoxia (2) COVID-19 (3) Acute respiratory failure with hypoxia (4) Pneumonia due to COVID-19 virus (5) Type 2 diabetes mellitus VITAL SIGNS Vital Signs/I&O: Vital Signs Date Time Temp Pulse Resp B/P (MAP) Pulse Ox O2 Delivery O2 Flow Rate FiO2 03/01/21 11:00 97.2 78 18 114/69 (84) 95 NonRebreather Mask 13.0 97.2 I & O 02/28/21 02/28/21 03/01/21 15:00 23:00 07:00 Intake Total 200 ml 50 ml Balance 200 ml 50 ml In general the patient is pleasant alert and oriented x3 some dyspnea otherwise in no acute distress HEENT exam is unremarkable for acute abnormality Chest bilateral equal air entry though diminished throughout no crackles or wheezes are noted. Tachypnea. Heart S1-S2 normal regular rate and rhythm no murmurs or gallops are noted Abdomen soft nontender nondistended no masses organomegaly noted Extremity exam is unremarkable for acute abnormality ALLERGIES Allergies: Allergies Coded Allergies Type Severity Reaction Last Updated Verified Penicillins Allergy Intermediate rash 02/24/21 Yes MEDS Medications: Current Medications Medications (Trade) Dose Ordered Sig/Carole Start Time Stop Time Status Last Admin Dose Admin Acetaminophen (Tylenol) 650 mg PRN Q6HRS PRN 02/24/21 14:45 Acetaminophen/ Hydrocodone Bitart (Lortab 5/325) 1 tab PRN Q4HRS PRN 02/24/21 14:45 Al Hydroxide/Mg Hydroxide (Mylanta Plus Xs) 30 ml PRN Q3HRS PRN 02/24/21 14:45 Ascorbic Acid (Vitamin C) 500 mg DAILY 02/25/21 09:00 03/01/21 08:52 Azithromycin 250 ml @ 250 mls/hr 1X ONCE 02/24/21 10:00 02/24/21 10:59 DC 02/24/21 10:43 Baricitinib (Olumiant) 4 mg DAILY 02/25/21 13:00 03/10/21 09:01 03/01/21 08:52 Benzonatate (Tessalon Perle) 100 mg [id number] 02/25/21 11:00 03/01/21 15:05 Calcium Carbonate/ Glycine (Tums) 500 mg PRN Q3HRS PRN 02/24/21 14:45 Ceftriaxone Sodium (Rocephin) 1 gm Q24H 02/25/21 09:00 03/02/21 08:59 03/01/21 08:53 Dexamethasone Sodium Phosphate (Decadron) 6 mg DAILY 02/25/21 09:00 03/07/21 08:59 03/01/21 08:53 Dextrose (Dextrose 50%-Water Syringe) 12.5 gm PRN Q15MIN PRN 02/25/21 07:30 Cancel Doxycycline Hyclate (Vibra-Tab) 100 mg BID 02/24/21 21:00 03/01/21 20:59 03/01/21 08:52 Enoxaparin Sodium (Lovenox 40mg Syringe) 40 mg Q24H 02/24/21 15:00 03/01/21 15:05 Guaifenesin (Robitussin Dm) 10 ml PRN Q6HRS PRN 02/24/21 15:00 03/01/21 12:28 Insulin Glargine (Lantus Syringe) 20 unit QHS 02/25/21 21:00 02/28/21 21:37 Insulin Human Lispro (HumaLOG) 7 units TIDWMEALS 02/26/21 12:00 03/01/21 12:28 Lactobacillus Rhamnosus (Culturelle) 1 cap BID 02/25/21 21:00 03/01/21 08:53 Magnesium Hydroxide (Milk Of Magnesia) 2,400 mg PRN Q12HR PRN 02/24/21 14:45 Ondansetron HCl (Zofran) 4 mg PRN Q6HRS PRN 02/24/21 14:45 Remdesivir 100 mg/ Sodium Chloride 230 ml @ 460 mls/hr Q24H 02/25/21 14:00 02/28/21 14:29 DC 02/28/21 14:36 Remdesivir 200 mg/ Sodium Chloride 210 ml @ 210 mls/hr 1X ONCE 02/24/21 14:00 02/24/21 14:59 DC 02/24/21 14:59 Sodium Chloride 1,000 ml @ 1,000 mls/hr 1X ONCE 02/24/21 10:00 02/24/21 10:59 DC 02/24/21 10:00 Thiamine Mononitrate (Vitamin B-1) 100 mg DAILY 02/25/21 09:00 03/01/21 08:53 Tizanidine HCl (Zanaflex) 4 mg PRN Q8HRS PRN 02/24/21 15:00 02/28/21 21:37 Zinc Sulfate (Orazinc) 220 mg DAILY 02/25/21 09:00 03/01/21 08:53 Zolpidem Tartrate (Ambien) 5 mg PRN QHS PRN 02/24/21 14:45 LAB Lab: Laboratory Tests Test 02/28/21 17:03 02/28/21 19:40 03/01/21 06:50 03/01/21 08:33 Glucose (Fingerstick) 359 mg/dL (70-99) H 297 mg/dL (70-99) H 191 mg/dL (70-99) H White Blood Count 17.7 x10^3/uL (4.0-11.0) H Red Blood Count 4.90 x10^6/uL (4.30-5.70) Hemoglobin 14.6 g/dL (13.0-17.5) Hematocrit 42.9 % (39.0-53.0) Mean Corpuscular Volume 88 fL (79-100) Mean Corpuscular Hemoglobin 30 pg (25-35) Mean Corpuscular Hemoglobin Concent 34 g/dL (31-37) Red Cell Distribution Width 13.9 % (11.5-14.5) Platelet Count 339 x10^3/uL (140-400) Neutrophils (%) (Auto) 80 % (31-73) H Lymphocytes (%) (Auto) 12 % (24-48) L Monocytes (%) (Auto) 6 % (0-9) Eosinophils (%) (Auto) 2 % (0-3) Basophils (%) (Auto) 0 % (0-3) Neutrophils # (Auto) 14.2 x10^3/uL (1.8-7.7) H Lymphocytes # (Auto) 2.1 x10^3/uL (1.0-4.8) Monocytes # (Auto) 1.1 x10^3/uL (0.0-1.1) Eosinophils # (Auto) 0.3 x10^3/uL (0.0-0.7) Basophils # (Auto) 0.0 x10^3/uL (0.0-0.2) Test 03/01/21 08:45 03/01/21 12:11 Sodium Level 135 mmol/L (136-145) L Potassium Level 4.1 mmol/L (3.5-5.1) Chloride Level 100 mmol/L (98-107) Carbon Dioxide Level 27 mmol/L (21-32) Anion Gap 8 (6-14) Blood Urea Nitrogen 22 mg/dL (8-26) Creatinine 0.7 mg/dL (0.7-1.3) Estimated GFR (Cockcroft-Gault) 120.4 Glucose Level 195 mg/dL (70-99) H Calcium Level 8.7 mg/dL (8.5-10.1) C-Reactive Protein, Quantitative 49.7 mg/L (0-3.3) H Glucose (Fingerstick) 287 mg/dL (70-99) H Laboratory Tests 03/01/21 06:50 Laboratory Tests 03/01/21 08:45 ASSESSMENT & PLAN A&P Plan as noted above This note was created using [employer] and may have omissions and/or er rors due to the nature of real-time voice hoist mechanic. Justifications for Admission Other Justification LUZ STEWART MD Mar 01, 2021 15:15
[2021-03-01 19:00] VITALS: BP 112/57
[2021-03-01] MEDS ORDERED: INSULIN GLARGINE SYRINGE. SQ SCH (21:00)
[2021-03-01 23:00] VITALS: BP 105/55
[2021-03-02 03:00] VITALS: BP 122/69
[2021-03-02 06:34] LABS: BASO % 0 % (0-3); EOS # 0.2 x10^3/uL (0.0-0.7); EOS % 1 % (0-3); HEMATOCRIT 42.5 % (39.0-53.0); HEMOGLOBIN 14.6 g/dL (13.0-17.5); LYMPH # 1.8 x10^3/uL (1.0-4.8); LYMPH % 11 % (24-48); MEAN CORPUSCULAR HEMOGLOBIN 30 pg (25-35); MEAN CORPUSCULAR HGB CONC 34 g/dL (31-37); MEAN CORPUSCULAR VOLUME 87 fL (79-100); MONO # 0.7 x10^3/uL (0.0-1.1); MONO % 4 % (0-9); NEUT # 13.2 x10^3/uL (1.8-7.7); NEUT % 83 % (31-73); PLATELET COUNT 350 x10^3/uL (140-400); RED CELL DISTRIBUTION WIDTH 14.1 % (11.5-14.5)
[2021-03-02 06:54] LABS: ALBUMIN 2.4 g/dL (3.4-5.0); ALBUMIN/GLOBULIN RATIO 0.6 (1.0-1.7); CALCIUM 8.6 mg/dL (8.5-10.1); CREATININE 0.8 mg/dL (0.7-1.3); GFR 103.2; POTASSIUM 4.3 mmol/L (3.5-5.1); TOTAL BILIRUBIN 0.5 mg/dL (0.2-1.0); TOTAL PROTEIN 6.6 g/dL (6.4-8.2)
[2021-03-02 07:00] VITALS: BP 109/68
[2021-03-02] MEDS: LACTOBACILLUS RHAMNOSUS GG 1 CAPSULE. PO SCH ×2 (08:07→21:13)
[2021-03-02] MEDS: ASCORBIC ACID 500 MG TABLET PO SCH (08:07)
[2021-03-02] MEDS: BENZONATATE 100 MG CAPSULE. PO SCH ×3 (08:07→21:13)
[2021-03-02] MEDS: ZINC SULFATE 220 MG CAPSULE. PO SCH (08:07)
[2021-03-02] MEDS: DEXAMETHASONE SOD PHOS 4 MG/ML VIAL IVP SCH (08:07)
[2021-03-02] MEDS: BARICITINIB 2 MG PO SCH (08:08)
[2021-03-02] MEDS: THIAMINE 100 MG TABLET. PO SCH (08:08)
[2021-03-02] MEDS: INSULIN LISPRO 300 UNITS/3 ML VIAL. SQ SCH ×6 (08:14→18:14)
--- NOTE | 2021-03-02 10:09 | PDOC ---
PULMONARY PROGRESS NOTES DATE: 03/02/21 TIME: 10:08 Subjective no increase soa slightly better on 02 13 lpm Vitals Vital Signs Date Time Temp Pulse Resp B/P (MAP) Pulse Ox O2 Delivery O2 Flow Rate FiO2 03/02/21 07:00 98.6 73 18 109/68 (82) 90 NonRebreather Mask 13.0 98.6 General: Alert, No acute distress Lungs: Clear Cardiovascular: S1 Abdomen: Soft Neuro Exam: Alert Extremities: No Edema Labs Laboratory Tests Test 02/28/21 11:26 02/28/21 17:03 02/28/21 19:40 03/01/21 06:50 Glucose (Fingerstick) 258 mg/dL (70-99) 359 mg/dL (70-99) 297 mg/dL (70-99) White Blood Count 17.7 x10^3/uL (4.0-11.0) Red Blood Count 4.90 x10^6/uL (4.30-5.70) Hemoglobin 14.6 g/dL (13.0-17.5) Hematocrit 42.9 % (39.0-53.0) Mean Corpuscular Volume 88 fL (79-100) Mean Corpuscular Hemoglobin 30 pg (25-35) Mean Corpuscular Hemoglobin Concent 34 g/dL (31-37) Red Cell Distribution Width 13.9 % (11.5-14.5) Platelet Count 339 x10^3/uL (140-400) Neutrophils (%) (Auto) 80 % (31-73) Lymphocytes (%) (Auto) 12 % (24-48) Monocytes (%) (Auto) 6 % (0-9) Eosinophils (%) (Auto) 2 % (0-3) Basophils (%) (Auto) 0 % (0-3) Neutrophils # (Auto) 14.2 x10^3/uL (1.8-7.7) Lymphocytes # (Auto) 2.1 x10^3/uL (1.0-4.8) Monocytes # (Auto) 1.1 x10^3/uL (0.0-1.1) Eosinophils # (Auto) 0.3 x10^3/uL (0.0-0.7) Basophils # (Auto) 0.0 x10^3/uL (0.0-0.2) Test 03/01/21 08:33 03/01/21 08:45 03/01/21 12:11 03/01/21 17:02 Glucose (Fingerstick) 191 mg/dL (70-99) 287 mg/dL (70-99) 387 mg/dL (70-99) Sodium Level 135 mmol/L (136-145) Potassium Level 4.1 mmol/L (3.5-5.1) Chloride Level 100 mmol/L (98-107) Carbon Dioxide Level 27 mmol/L (21-32) Anion Gap 8 (6-14) Blood Urea Nitrogen 22 mg/dL (8-26) Creatinine 0.7 mg/dL (0.7-1.3) Estimated GFR (Cockcroft-Gault) 120.4 Glucose Level 195 mg/dL (70-99) Calcium Level 8.7 mg/dL (8.5-10.1) C-Reactive Protein, Quantitative 49.7 mg/L (0-3.3) Test 03/01/21 20:55 03/02/21 06:00 03/02/21 07:54 Glucose (Fingerstick) 298 mg/dL (70-99) 179 mg/dL (70-99) White Blood Count 16.0 x10^3/uL (4.0-11.0) Red Blood Count 4.90 x10^6/uL (4.30-5.70) Hemoglobin 14.6 g/dL (13.0-17.5) Hematocrit 42.5 % (39.0-53.0) Mean Corpuscular Volume 87 fL (79-100) Mean Corpuscular Hemoglobin 30 pg (25-35) Mean Corpuscular Hemoglobin Concent 34 g/dL (31-37) Red Cell Distribution Width 14.1 % (11.5-14.5) Platelet Count 350 x10^3/uL (140-400) Neutrophils (%) (Auto) 83 % (31-73) Lymphocytes (%) (Auto) 11 % (24-48) Monocytes (%) (Auto) 4 % (0-9) Eosinophils (%) (Auto) 1 % (0-3) Basophils (%) (Auto) 0 % (0-3) Neutrophils # (Auto) 13.2 x10^3/uL (1.8-7.7) Lymphocytes # (Auto) 1.8 x10^3/uL (1.0-4.8) Monocytes # (Auto) 0.7 x10^3/uL (0.0-1.1) Eosinophils # (Auto) 0.2 x10^3/uL (0.0-0.7) Basophils # (Auto) 0.0 x10^3/uL (0.0-0.2) Sodium Level 135 mmol/L (136-145) Potassium Level 4.3 mmol/L (3.5-5.1) Chloride Level 101 mmol/L (98-107) Carbon Dioxide Level 29 mmol/L (21-32) Anion Gap 5 (6-14) Blood Urea Nitrogen 20 mg/dL (8-26) Creatinine 0.8 mg/dL (0.7-1.3) Estimated GFR (Cockcroft-Gault) 103.2 BUN/Creatinine Ratio 25 (6-20) Glucose Level 191 mg/dL (70-99) Calcium Level 8.6 mg/dL (8.5-10.1) Total Bilirubin 0.5 mg/dL (0.2-1.0) Aspartate Amino Transf (AST/SGOT) 11 U/L (15-37) Alanine Aminotransferase (ALT/SGPT) 43 U/L (16-63) Alkaline Phosphatase 65 U/L (46-116) Total Protein 6.6 g/dL (6.4-8.2) Albumin 2.4 g/dL (3.4-5.0) Albumin/Globulin Ratio 0.6 (1.0-1.7) Laboratory Tests Test 03/01/21 12:11 03/01/21 17:02 03/01/21 20:55 03/02/21 06:00 Glucose (Fingerstick) 287 mg/dL (70-99) 387 mg/dL (70-99) 298 mg/dL (70-99) White Blood Count 16.0 x10^3/uL (4.0-11.0) Red Blood Count 4.90 x10^6/uL (4.30-5.70) Hemoglobin 14.6 g/dL (13.0-17.5) Hematocrit 42.5 % (39.0-53.0) Mean Corpuscular Volume 87 fL (79-100) Mean Corpuscular Hemoglobin 30 pg (25-35) Mean Corpuscular Hemoglobin Concent 34 g/dL (31-37) Red Cell Distribution Width 14.1 % (11.5-14.5) Platelet Count 350 x10^3/uL (140-400) Neutrophils (%) (Auto) 83 % (31-73) Lymphocytes (%) (Auto) 11 % (24-48) Monocytes (%) (Auto) 4 % (0-9) Eosinophils (%) (Auto) 1 % (0-3) Basophils (%) (Auto) 0 % (0-3) Neutrophils # (Auto) 13.2 x10^3/uL (1.8-7.7) Lymphocytes # (Auto) 1.8 x10^3/uL (1.0-4.8) Monocytes # (Auto) 0.7 x10^3/uL (0.0-1.1) Eosinophils # (Auto) 0.2 x10^3/uL (0.0-0.7) Basophils # (Auto) 0.0 x10^3/uL (0.0-0.2) Sodium Level 135 mmol/L (136-145) Potassium Level 4.3 mmol/L (3.5-5.1) Chloride Level 101 mmol/L (98-107) Carbon Dioxide Level 29 mmol/L (21-32) Anion Gap 5 (6-14) Blood Urea Nitrogen 20 mg/dL (8-26) Creatinine 0.8 mg/dL (0.7-1.3) Estimated GFR (Cockcroft-Gault) 103.2 BUN/Creatinine Ratio 25 (6-20) Glucose Level 191 mg/dL (70-99) Calcium Level 8.6 mg/dL (8.5-10.1) Total Bilirubin 0.5 mg/dL (0.2-1.0) Aspartate Amino Transf (AST/SGOT) 11 U/L (15-37) Alanine Aminotransferase (ALT/SGPT) 43 U/L (16-63) Alkaline Phosphatase 65 U/L (46-116) Total Protein 6.6 g/dL (6.4-8.2) Albumin 2.4 g/dL (3.4-5.0) Albumin/Globulin Ratio 0.6 (1.0-1.7) Test 03/02/21 07:54 Glucose (Fingerstick) 179 mg/dL (70-99) Medications Active Scripts Medications Dose Route/Sig Max Daily Dose Days Date Category Levemir (Insulin Detemir) 100 Unit/1 Ml Vial 20 Unit SQ QHS 02/24/21 Reported Glimepiride 4 Mg Tablet 1 Tab PO DAILY 02/24/21 Reported Lansoprazole 30 Mg Capsule.dr 1 Cap PO DAILY 02/24/21 Reported Atorvastatin Calcium 40 Mg Tablet 1 Tab PO QHS 02/24/21 Reported Lisinopril 30 Mg Tablet 1 Tab PO DAILY 02/24/21 Reported Januvia (Sitagliptin Phosphate) 100 Mg Tablet 1 Tab PO DAILY 02/24/21 Reported Metformin Hcl 1,000 Mg Tablet 1,000 Mg PO BIDWMEALS 02/24/21 Reported Impression . 1. Acute hypoxic respiratory failure secondary to COVID-19 viral pneumonia/early acute respiratory distress syndrome and acute lung injury. 2. No significant tobacco history. 3. Abnormal chest x-ray consistent with viral pneumonia. 4. Increased C-reactive protein. 5. [id number] protein-calorie malnutrition. Plan . 1. oxygenation better, monitor respiratory status titrate FiO2 to keep saturation 90% and above. 2. vapotherm if desaturates. 3. Continue dexamethasone for a total of 10 days. 4. 5 days of remdesivir. 5. baricitinib. 6. Discussed with RN. 7. LFT within normal limits CATHRYN CULLEN MD Mar 02, 2021 10:08
[2021-03-02 11:00] VITALS: BP 119/63
--- NOTE | 2021-03-02 11:16 | PDOC ---
GENERAL General: Patient examined chart reviewed no events overnight noted. His sugars are little improved today but still too high. We will increase his glargine to 40 units at bedtime. He continues to come down on his oxygen supplementation we will continue current management otherwise. Problems: (1) COVID-19 (2) Acute respiratory failure with hypoxia (3) Type 2 diabetes mellitus VITAL SIGNS Vital Signs/I&O: Vital Signs Date Time Temp Pulse Resp B/P (MAP) Pulse Ox O2 Delivery O2 Flow Rate FiO2 03/02/21 08:00 Non-Rebreather 15.0 03/02/21 07:00 98.6 73 18 109/68 (82) 90 98.6 In general patient is comfortable resting watching his TV this morning HEENT exam is unremarkable Chest bilateral equal air entry throughout fine inspiratory and expiratory crackles noted at the bilateral bases Heart S1-S2 normal regular rate and rhythm no murmurs or gallops are noted Abdomen soft nontender nondistended no masses organomegaly noted Extremity exam is unremarkable for acute abnormality ALLERGIES Allergies: Allergies Coded Allergies Type Severity Reaction Last Updated Verified Penicillins Allergy Intermediate rash 02/24/21 Yes MEDS Medications: Current Medications Medications (Trade) Dose Ordered Sig/Carole Start Time Stop Time Status Last Admin Dose Admin Acetaminophen (Tylenol) 650 mg PRN Q6HRS PRN 02/24/21 14:45 Acetaminophen/ Hydrocodone Bitart (Lortab 5/325) 1 tab PRN Q4HRS PRN 02/24/21 14:45 Al Hydroxide/Mg Hydroxide (Mylanta Plus Xs) 30 ml PRN Q3HRS PRN 02/24/21 14:45 Ascorbic Acid (Vitamin C) 500 mg DAILY 02/25/21 09:00 03/02/21 08:07 Azithromycin 250 ml @ 250 mls/hr 1X ONCE 02/24/21 10:00 02/24/21 10:59 DC 02/24/21 10:43 Baricitinib (Olumiant) 4 mg DAILY 02/25/21 13:00 03/10/21 09:01 03/02/21 08:08 Benzonatate (Tessalon Perle) 100 mg [id number] 02/25/21 11:00 03/02/21 08:07 Calcium Carbonate/ Glycine (Tums) 500 mg PRN Q3HRS PRN 02/24/21 14:45 Ceftriaxone Sodium (Rocephin) 1 gm Q24H 02/25/21 09:00 03/02/21 08:59 DC 03/01/21 08:53 Dexamethasone Sodium Phosphate (Decadron) 6 mg DAILY 02/25/21 09:00 03/07/21 08:59 03/02/21 08:07 Dextrose (Dextrose 50%-Water Syringe) 12.5 gm PRN Q15MIN PRN 02/25/21 07:30 Cancel Doxycycline Hyclate (Vibra-Tab) 100 mg BID 02/24/21 21:00 03/01/21 20:59 DC 03/01/21 08:52 Enoxaparin Sodium (Lovenox 40mg Syringe) 40 mg Q24H 02/24/21 15:00 03/01/21 15:05 Guaifenesin (Robitussin Dm) 10 ml PRN Q6HRS PRN 02/24/21 15:00 03/01/21 12:28 Insulin Glargine (Lantus Syringe) 30 unit QHS 03/01/21 21:00 03/01/21 21:43 Insulin Human Lispro (HumaLOG) 7 units TIDWMEALS 02/26/21 12:00 03/02/21 08:15 Lactobacillus Rhamnosus (Culturelle) 1 cap BID 02/25/21 21:00 03/02/21 08:07 Magnesium Hydroxide (Milk Of Magnesia) 2,400 mg PRN Q12HR PRN 02/24/21 14:45 Ondansetron HCl (Zofran) 4 mg PRN Q6HRS PRN 02/24/21 14:45 Remdesivir 100 mg/ Sodium Chloride 230 ml @ 460 mls/hr Q24H 02/25/21 14:00 02/28/21 14:29 DC 02/28/21 14:36 Remdesivir 200 mg/ Sodium Chloride 210 ml @ 210 mls/hr 1X ONCE 02/24/21 14:00 02/24/21 14:59 DC 02/24/21 14:59 Sodium Chloride 1,000 ml @ 1,000 mls/hr 1X ONCE 02/24/21 10:00 02/24/21 10:59 DC 02/24/21 10:00 Thiamine Mononitrate (Vitamin B-1) 100 mg DAILY 02/25/21 09:00 03/02/21 08:08 Tizanidine HCl (Zanaflex) 4 mg PRN Q8HRS PRN 02/24/21 15:00 02/28/21 21:37 Zinc Sulfate (Orazinc) 220 mg DAILY 02/25/21 09:00 03/02/21 08:07 Zolpidem Tartrate (Ambien) 5 mg PRN QHS PRN 02/24/21 14:45 Current Medications Medications (Trade) Dose Ordered Sig/Carole Route PRN Reason Start Time Stop Time Status Last Admin Dose Admin Insulin Glargine (Lantus Syringe) 30 unit QHS SQ 03/01/21 21:00 03/01/21 21:43 LAB Lab: Laboratory Tests Test 03/01/21 12:11 03/01/21 17:02 03/01/21 20:55 03/02/21 06:00 Glucose (Fingerstick) 287 mg/dL (70-99) H 387 mg/dL (70-99) H 298 mg/dL (70-99) H White Blood Count 16.0 x10^3/uL (4.0-11.0) H Red Blood Count 4.90 x10^6/uL (4.30-5.70) Hemoglobin 14.6 g/dL (13.0-17.5) Hematocrit 42.5 % (39.0-53.0) Mean Corpuscular Volume 87 fL (79-100) Mean Corpuscular Hemoglobin 30 pg (25-35) Mean Corpuscular Hemoglobin Concent 34 g/dL (31-37) Red Cell Distribution Width 14.1 % (11.5-14.5) Platelet Count 350 x10^3/uL (140-400) Neutrophils (%) (Auto) 83 % (31-73) H Lymphocytes (%) (Auto) 11 % (24-48) L Monocytes (%) (Auto) 4 % (0-9) Eosinophils (%) (Auto) 1 % (0-3) Basophils (%) (Auto) 0 % (0-3) Neutrophils # (Auto) 13.2 x10^3/uL (1.8-7.7) H Lymphocytes # (Auto) 1.8 x10^3/uL (1.0-4.8) Monocytes # (Auto) 0.7 x10^3/uL (0.0-1.1) Eosinophils # (Auto) 0.2 x10^3/uL (0.0-0.7) Basophils # (Auto) 0.0 x10^3/uL (0.0-0.2) Sodium Level 135 mmol/L (136-145) L Potassium Level 4.3 mmol/L (3.5-5.1) Chloride Level 101 mmol/L (98-107) Carbon Dioxide Level 29 mmol/L (21-32) Anion Gap 5 (6-14) L Blood Urea Nitrogen 20 mg/dL (8-26) Creatinine 0.8 mg/dL (0.7-1.3) Estimated GFR (Cockcroft-Gault) 103.2 BUN/Creatinine Ratio 25 (6-20) H Glucose Level 191 mg/dL (70-99) H Calcium Level 8.6 mg/dL (8.5-10.1) Total Bilirubin 0.5 mg/dL (0.2-1.0) Aspartate Amino Transferase (AST) 11 U/L (15-37) L Alanine Aminotransferase (ALT) 43 U/L (16-63) Alkaline Phosphatase 65 U/L (46-116) Total Protein 6.6 g/dL (6.4-8.2) Albumin 2.4 g/dL (3.4-5.0) L Albumin/Globulin Ratio 0.6 (1.0-1.7) L Test 03/02/21 07:54 Glucose (Fingerstick) 179 mg/dL (70-99) H Laboratory Tests 03/02/21 06:00 Laboratory Tests 03/02/21 06:00 ASSESSMENT & PLAN A&P Plan as noted above This note was created using [employer] and may have omissions and/or errors due to the nature of 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 Justifications for Admission Other Justification LZU STEWART MD Mar 02, 2021 11:16
[2021-03-02] MEDS: ENOXAPARIN 40 MG/0.4 ML SYRINGE. SQ SCH (14:49)
[2021-03-02 15:00] VITALS: BP 114/58
[2021-03-02 19:00] VITALS: BP 109/67
[2021-03-02] MEDS ORDERED: INSULIN LISPRO 300 UNITS/3 ML VIAL. SQ STA (20:37)
[2021-03-02] MEDS ORDERED: INSULIN GLARGINE SYRINGE. SQ SCH (21:00)
[2021-03-02 23:00] VITALS: BP 107/57
[2021-03-03 03:00] VITALS: BP 97/58
[2021-03-03 07:00] VITALS: BP 104/63
[2021-03-03 07:33] LABS: BASO # 0.1 x10^3/uL (0.0-0.2); BASO % 1 % (0-3); EOS # 0.2 x10^3/uL (0.0-0.7); EOS % 1 % (0-3); HEMATOCRIT 42.8 % (39.0-53.0); HEMOGLOBIN 14.7 g/dL (13.0-17.5); LYMPH # 2.3 x10^3/uL (1.0-4.8); LYMPH % 15 % (24-48); MEAN CORPUSCULAR HEMOGLOBIN 30 pg (25-35); MEAN CORPUSCULAR HGB CONC 34 g/dL (31-37); MEAN CORPUSCULAR VOLUME 87 fL (79-100); MONO # 1.1 x10^3/uL (0.0-1.1); MONO % 7 % (0-9); NEUT # 11.9 x10^3/uL (1.8-7.7); NEUT % 77 % (31-73); PLATELET COUNT 375 x10^3/uL (140-400); RED BLOOD COUNT 4.94 x10^6/uL (4.30-5.70); WHITE BLOOD COUNT 15.5 x10^3/uL (4.0-11.0)
--- NOTE | 2021-03-03 07:36 | PDOC ---
PULMONARY PROGRESS NOTES DATE: 03/03/21 TIME: 07:36 Subjective No new complaintn on 02 13 lpm Vitals Vital Signs Date Time Temp Pulse Resp B/P (MAP) Pulse Ox O2 Delivery O2 Flow Rate FiO2 03/03/21 03:00 98.5 65 24 97/58 (71) 92 NonRebreather Mask 10.0 98.5 General: Alert, No acute distress Lungs: Clear Cardiovascular: S1 Abdomen: Soft Neuro Exam: Alert Extremities: No Edema Labs Laboratory Tests Test 03/01/21 08:33 03/01/21 08:45 03/01/21 12:11 03/01/21 17:02 Glucose (Fingerstick) 191 mg/dL (70-99) 287 mg/dL (70-99) 387 mg/dL (70-99) Sodium Level 135 mmol/L (136-145) Potassium Level 4.1 mmol/L (3.5-5.1) Chloride Level 100 mmol/L (98-107) Carbon Dioxide Level 27 mmol/L (21-32) Anion Gap 8 (6-14) Blood Urea Nitrogen 22 mg/dL (8-26) Creatinine 0.7 mg/dL (0.7-1.3) Estimated GFR (Cockcroft-Gault) 120.4 Glucose Level 195 mg/dL (70-99) Calcium Level 8.7 mg/dL (8.5-10.1) C-Reactive Protein, Quantitative 49.7 mg/L (0-3.3) Test 03/01/21 20:55 03/02/21 06:00 03/02/21 07:54 03/02/21 12:22 Glucose (Fingerstick) 298 mg/dL (70-99) 179 mg/dL (70-99) 313 mg/dL (70-99) White Blood Count 16.0 x10^3/uL (4.0-11.0) Red Blood Count 4.90 x10^6/uL (4.30-5.70) Hemoglobin 14.6 g/dL (13.0-17.5) Hematocrit 42.5 % (39.0-53.0) Mean Corpuscular Volume 87 fL (79-100) Mean Corpuscular Hemoglobin 30 pg (25-35) Mean Corpuscular Hemoglobin Concent 34 g/dL (31-37) Red Cell Distribution Width 14.1 % (11.5-14.5) Platelet Count 350 x10^3/uL (140-400) Neutrophils (%) (Auto) 83 % (31-73) Lymphocytes (%) (Auto) 11 % (24-48) Monocytes (%) (Auto) 4 % (0-9) Eosinophils (%) (Auto) 1 % (0-3) Basophils (%) (Auto) 0 % (0-3) Neutrophils # (Auto) 13.2 x10^3/uL (1.8-7.7) Lymphocytes # (Auto) 1.8 x10^3/uL (1.0-4.8) Monocytes # (Auto) 0.7 x10^3/uL (0.0-1.1) Eosinophils # (Auto) 0.2 x10^3/uL (0.0-0.7) Basophils # (Auto) 0.0 x10^3/uL (0.0-0.2) Sodium Level 135 mmol/L (136-145) Potassium Level 4.3 mmol/L (3.5-5.1) Chloride Level 101 mmol/L (98-107) Carbon Dioxide Level 29 mmol/L (21-32) Anion Gap 5 (6-14) Blood Urea Nitrogen 20 mg/dL (8-26) Creatinine 0.8 mg/dL (0.7-1.3) Estimated GFR (Cockcroft-Gault) 103.2 BUN/Creatinine Ratio 25 (6-20) Glucose Level 191 mg/dL (70-99) Calcium Level 8.6 mg/dL (8.5-10.1) Total Bilirubin 0.5 mg/dL (0.2-1.0) Aspartate Amino Transf (AST/SGOT) 11 U/L (15-37) Alanine Aminotransferase (ALT/SGPT) 43 U/L (16-63) Alkaline Phosphatase 65 U/L (46-116) Total Protein 6.6 g/dL (6.4-8.2) Albumin 2.4 g/dL (3.4-5.0) Albumin/Globulin Ratio 0.6 (1.0-1.7) Test 03/02/21 16:42 03/02/21 20:27 03/02/21 22:47 Glucose (Fingerstick) 353 mg/dL (70-99) 449 mg/dL (70-99) 312 mg/dL (70-99) Laboratory Tests Test 03/02/21 07:54 03/02/21 12:22 03/02/21 16:42 03/02/21 20:27 Glucose (Fingerstick) 179 mg/dL (70-99) 313 mg/dL (70-99) 353 mg/dL (70-99) 449 mg/dL (70-99) Test 03/02/21 22:47 Glucose (Fingerstick) 312 mg/dL (70-99) Medications Active Scripts Medications Dose Route/Sig Max Daily Dose Days Date Category Levemir (Insulin Detemir) 100 Unit/1 Ml Vial 20 Unit SQ QHS 02/24/21 Reported Glimepiride 4 Mg Tablet 1 Tab PO DAILY 02/24/21 Reported Lansoprazole 30 Mg Capsule.dr 1 Cap PO DAILY 02/24/21 Reported Atorvastatin Calcium 40 Mg Tablet 1 Tab PO QHS 02/24/21 Reported Lisinopril 30 Mg Tablet 1 Tab PO DAILY 02/24/21 Reported Januvia (Sitagliptin Phosphate) 100 Mg Tablet 1 Tab PO DAILY 02/24/21 Reported Metformin Hcl 1,000 Mg Tablet 1,000 Mg PO BIDWMEALS 02/24/21 Reported Impression . 1. Acute hypoxic respiratory failure secondary to COVID-19 viral pneumonia/early acute respiratory distress syndrome and acute lung injury. 2. No significant tobacco history. 3. Abnormal chest x-ray consistent with viral pneumonia. 4. Increased C-reactive protein. 5. [id number] protein-calorie malnutrition. Plan . Patient continues to do well, continue current support, dexamethasone, Remdesivir Oxygen supplementation for 1. oxygenation better, monitor respiratory status titrate FiO2 to keep saturation 90% and above. 2. vapotherm if desaturates. 3. Continue dexamethasone for a total of 10 days. 4. 5 days of remdesivir. 5. baricitinib. 6. Discussed with RN. 7. LFT within normal limits ISAAC NUNEZ MD Mar 03, 2021 07:36
[2021-03-03 07:45] LABS: ALBUMIN 2.4 g/dL (3.4-5.0); ALBUMIN/GLOBULIN RATIO 0.6 (1.0-1.7); CALCIUM 8.4 mg/dL (8.5-10.1); CREATININE 0.9 mg/dL (0.7-1.3); GFR 90.1; TOTAL BILIRUBIN 0.6 mg/dL (0.2-1.0); TOTAL PROTEIN 6.6 g/dL (6.4-8.2)
[2021-03-03] MEDS: INSULIN LISPRO 300 UNITS/3 ML VIAL. SQ SCH ×6 (08:00→17:41)
[2021-03-03] MEDS: LACTOBACILLUS RHAMNOSUS GG 1 CAPSULE. PO SCH ×2 (08:50→20:47)
[2021-03-03] MEDS: BARICITINIB 2 MG PO SCH (08:50)
[2021-03-03] MEDS: ASCORBIC ACID 500 MG TABLET PO SCH (08:50)
[2021-03-03] MEDS: ZINC SULFATE 220 MG CAPSULE. PO SCH (08:50)
[2021-03-03] MEDS: THIAMINE 100 MG TABLET. PO SCH (08:50)
[2021-03-03] MEDS: DEXAMETHASONE SOD PHOS 4 MG/ML VIAL IVP SCH (08:52)
[2021-03-03] MEDS: BENZONATATE 100 MG CAPSULE. PO SCH ×3 (09:44→20:47)
[2021-03-03 11:00] VITALS: BP 108/57
--- NOTE | 2021-03-03 11:23 | NUR ---
SW following. Discussed with RN, pt from home, now on 8L NC (does not use oxygen at home), COVID-19 positive. RN advised no SW needs at this time. SW will continue to follow.
--- NOTE | 2021-03-03 13:26 | PDOC ---
[facility] PROGRESS NOTE Date of Service DOS: DATE: 03/03/21 TIME: 13:23 Chief Complaint Chief Complaint A/P: Acute respiratory failure with hypoxia COVID-19 pneumonia - remdesivir, daily LFTs, IV Decadron 6 mg daily to complete 10-day, supportive care; zinc, vitamin C, CRP >75 and LFTs elevated, consulted pulm and initiated Baricitinib on 02/25 DM2 with hyperglycemia Elevated CK Severe protein calorie malnutrition Hyponatremia FEN - ADA diet PPX - Lovenox FULL CODE Dispo - inpatient for above Patient names his (Kacey Brennan) as surrogate decision-maker. History of Present Illness History of Present Illness Mr Brennan is a 46-year-old male with past medical history DM2, HLD, presents to the ED with complaints of worsening shortness of breath. States he was tested positive for COVID-19 5 days ago, and his symptoms have been worsening since that time. He reports associated cough, fever, headache, sore throat, fatigue, body aches, loss of smell, and loss of taste. Upon arrival in the ED he was tachycardic and febrile, with T-max 103.3 F. His oxygen saturation was 80% on room air, which improved with 6 L nasal cannula. Labs on admission showed CBG 295, CK 462, albumin 3.1. He received IV fluids, Rocephin, and IV Decadron. States he did not receive his COVID-19 vaccination as he was concerned that the side effects may make him feel sick. Will admit patient for further medical management. ABG 7.45/34/61 on 6 L nasal cannula 02/25: Febrile 101.4 F overnight glucose in the 200s. Now on 15 L nasal cannula with O2 saturations 96%. CRP returned over 120. Appetite poor 02/26: Afebrile overnight. Glucose still elevated. Pulmonology consulted and added baricitinib on 02/25/2021. Now on 10 L NC O2 saturations 91% 02/27: Afebrile. Labs improved. Improved. His cough is a lot more rough today and he continues to take off his oxygen is 90 has an appetite. In his room patient was with O2 saturation 77%. Placed on nasal cannula and O2 saturations came up on 12 L to 91%. Afebrile. Labs stable. Still with a painful cough. Is eating a little better. On facemask O2 10 L/min and saturations 93%. Glucose in 200s. 03/03/2021 No acute events overnight. Patient saturating well 92% on daily. Patient seen and examined bedside. No concerns from nursing. Patient's chart, labs, images were reviewed and discussed with RN Vitals/I&O Vitals/I&O: Vital Signs Date Time Temp Pulse Resp B/P (MAP) Pulse Ox O2 Delivery O2 Flow Rate FiO2 03/03/21 11:00 98.3 66 20 108/57 (74) 97 Nasal Cannula 8.0 98.3 Physical Exam General: Alert, Oriented X3, Cooperative, moderate distress Heart: Regular rate, Normal S1, Normal S2 Lungs: Clear Abdomen: Normal bowel sounds, Soft Extremities: No clubbing, No cyanosis Skin: No rashes, No breakdown Labs Labs: Laboratory Tests Test 03/02/21 16:42 03/02/21 20:27 03/02/21 22:47 03/03/21 06:55 Glucose (Fingerstick) 353 mg/dL (70-99) 449 mg/dL (70-99) 312 mg/dL (70-99) White Blood Count 15.5 x10^3/uL (4.0-11.0) Red Blood Count 4.94 x10^6/uL (4.30-5.70) Hemoglobin 14.7 g/dL (13.0-17.5) Hematocrit 42.8 % (39.0-53.0) Mean Corpuscular Volume 87 fL (79-100) Mean Corpuscular Hemoglobin 30 pg (25-35) Mean Corpuscular Hemoglobin Concent 34 g/dL (31-37) Red Cell Distribution Width 14.0 % (11.5-14.5) Platelet Count 375 x10^3/uL (140-400) Neutrophils (%) (Auto) 77 % (31-73) Lymphocytes (%) (Auto) 15 % (24-48) Monocytes (%) (Auto) 7 % (0-9) Eosinophils (%) (Auto) 1 % (0-3) Basophils (%) (Auto) 1 % (0-3) Neutrophils # (Auto) 11.9 x10^3/uL (1.8-7.7) Lymphocytes # (Auto) 2.3 x10^3/uL (1.0-4.8) Monocytes # (Auto) 1.1 x10^3/uL (0.0-1.1) Eosinophils # (Auto) 0.2 x10^3/uL (0.0-0.7) Basophils # (Auto) 0.1 x10^3/uL (0.0-0.2) Sodium Level 136 mmol/L (136-145) Potassium Level 4.0 mmol/L (3.5-5.1) Chloride Level 100 mmol/L (98-107) Carbon Dioxide Level 31 mmol/L (21-32) Anion Gap 5 (6-14) Blood Urea Nitrogen 16 mg/dL (8-26) Creatinine 0.9 mg/dL (0.7-1.3) Estimated GFR (Cockcroft-Gault) 90.1 BUN/Creatinine Ratio 18 (6-20) Glucose Level 122 mg/dL (70-99) Calcium Level 8.4 mg/dL (8.5-10.1) Total Bilirubin 0.6 mg/dL (0.2-1.0) Aspartate Amino Transf (AST/SGOT) 17 U/L (15-37) Alanine Aminotransferase (ALT/SGPT) 47 U/L (16-63) Alkaline Phosphatase 77 U/L (46-116) Total Protein 6.6 g/dL (6.4-8.2) Albumin 2.4 g/dL (3.4-5.0) Albumin/Globulin Ratio 0.6 (1.0-1.7) Test 03/03/21 07:49 03/03/21 11:52 Glucose (Fingerstick) 124 mg/dL (70-99) 282 mg/dL (70-99) Assessment and Plan Assessmemt and Plan Problems Medical Problems: (1) Bilateral pneumonia Status: Acute (2) COVID-19 Status: Acute (3) Hypoxia Status: Acute (4) Sepsis Status: Acute Comment Review of Relevant I have reviewed the following items alok (where applicable) has been applied. Medications: Current Medications Medications (Trade) Dose Ordered Sig/Carole Route PRN Reason Start Time Stop Time Status Last Admin Dose Admin Insulin Glargine (Lantus Syringe) 40 unit QHS SQ 03/02/21 21:00 03/02/21 21:12 Insulin Human Lispro (HumaLOG) 12 units 1X STAT SQ 03/02/21 20:37 03/02/21 20:39 DC 03/02/21 21:12 Justifications for Admission Other Justification LUIZA KING MD Mar 03, 2021 13:26
[2021-03-03] MEDS: ENOXAPARIN 40 MG/0.4 ML SYRINGE. SQ SCH (14:30)
[2021-03-03 15:00] VITALS: BP 116/55
[2021-03-03 19:00] VITALS: BP 112/64
[2021-03-03] MEDS: INSULIN GLARGINE SYRINGE. SQ SCH (20:55)
[2021-03-03] MEDS ORDERED: INSULIN LISPRO 300 UNITS/3 ML VIAL. SQ ONE (21:00)
[2021-03-03 22:22] LABS: HEMOGLOBIN A1C 9.1 % (4.8-5.6)
[2021-03-03 23:00] VITALS: BP 118/71
[2021-03-04 03:00] VITALS: BP 116/73
[2021-03-04 07:55] VITALS: BP 105/63
[2021-03-04] MEDS: INSULIN LISPRO 300 UNITS/3 ML VIAL. SQ SCH ×6 (08:00→17:32)
[2021-03-04] MEDS: INSULIN GLARGINE SYRINGE. SQ SCH ×2 (08:48→21:13)
[2021-03-04] MEDS: LACTOBACILLUS RHAMNOSUS GG 1 CAPSULE. PO SCH ×2 (08:49→21:12)
[2021-03-04] MEDS: ZINC SULFATE 220 MG CAPSULE. PO SCH (08:49)
[2021-03-04] MEDS: ASCORBIC ACID 500 MG TABLET PO SCH (08:49)
[2021-03-04] MEDS: BENZONATATE 100 MG CAPSULE. PO SCH ×3 (08:49→21:12)
[2021-03-04] MEDS: THIAMINE 100 MG TABLET. PO SCH (08:49)
[2021-03-04] MEDS: DEXAMETHASONE SOD PHOS 4 MG/ML VIAL IVP SCH (08:49)
[2021-03-04] MEDS: BARICITINIB 2 MG PO SCH (08:49)
--- NOTE | 2021-03-04 08:59 | PDOC ---
PULMONARY PROGRESS NOTES DATE: 03/04/21 TIME: 08:59 Subjective Patient feels better, he thinks he may be able to be ready to discharge in the a.m., currently on 4 L Vitals Vital Signs Date Time Temp Pulse Resp B/P (MAP) Pulse Ox O2 Delivery O2 Flow Rate FiO2 03/04/21 07:55 97.5 70 20 105/63 (77) 96 Nasal Cannula 6.0 97.5 ROS: No Nausea, No Chest Pain, No Abdominal Pain, No Increase Cough General: Alert, No acute distress Lungs: Clear Cardiovascular: S1 Abdomen: Soft Neuro Exam: Alert Extremities: No Edema Labs Laboratory Tests Test 03/02/21 12:22 03/02/21 16:42 03/02/21 20:27 03/02/21 22:47 Glucose (Fingerstick) 313 mg/dL (70-99) 353 mg/dL (70-99) 449 mg/dL (70-99) 312 mg/dL (70-99) Test 03/03/21 06:55 03/03/21 07:49 03/03/21 11:52 03/03/21 16:58 White Blood Count 15.5 x10^3/uL (4.0-11.0) Red Blood Count 4.94 x10^6/uL (4.30-5.70) Hemoglobin 14.7 g/dL (13.0-17.5) Hematocrit 42.8 % (39.0-53.0) Mean Corpuscular Volume 87 fL (79-100) Mean Corpuscular Hemoglobin 30 pg (25-35) Mean Corpuscular Hemoglobin Concent 34 g/dL (31-37) Red Cell Distribution Width 14.0 % (11.5-14.5) Platelet Count 375 x10^3/uL (140-400) Neutrophils (%) (Auto) 77 % (31-73) Lymphocytes (%) (Auto) 15 % (24-48) Monocytes (%) (Auto) 7 % (0-9) Eosinophils (%) (Auto) 1 % (0-3) Basophils (%) (Auto) 1 % (0-3) Neutrophils # (Auto) 11.9 x10^3/uL (1.8-7.7) Lymphocytes # (Auto) 2.3 x10^3/uL (1.0-4.8) Monocytes # (Auto) 1.1 x10^3/uL (0.0-1.1) Eosinophils # (Auto) 0.2 x10^3/uL (0.0-0.7) Basophils # (Auto) 0.1 x10^3/uL (0.0-0.2) Sodium Level 136 mmol/L (136-145) Potassium Level 4.0 mmol/L (3.5-5.1) Chloride Level 100 mmol/L (98-107) Carbon Dioxide Level 31 mmol/L (21-32) Anion Gap 5 (6-14) Blood Urea Nitrogen 16 mg/dL (8-26) Creatinine 0.9 mg/dL (0.7-1.3) Estimated GFR (Cockcroft-Gault) 90.1 BUN/Creatinine Ratio 18 (6-20) Glucose Level 122 mg/dL (70-99) Calcium Level 8.4 mg/dL (8.5-10.1) Total Bilirubin 0.6 mg/dL (0.2-1.0) Aspartate Amino Transf (AST/SGOT) 17 U/L (15-37) Alanine Aminotransferase (ALT/SGPT) 47 U/L (16-63) Alkaline Phosphatase 77 U/L (46-116) Total Protein 6.6 g/dL (6.4-8.2) Albumin 2.4 g/dL (3.4-5.0) Albumin/Globulin Ratio 0.6 (1.0-1.7) Glucose (Fingerstick) 124 mg/dL (70-99) 282 mg/dL (70-99) 400 mg/dL (70-99) Test 03/03/21 19:48 03/04/21 08:01 Glucose (Fingerstick) 420 mg/dL (70-99) 119 mg/dL (70-99) Laboratory Tests Test 03/03/21 11:52 03/03/21 16:58 03/03/21 19:48 03/04/21 08:01 Glucose (Fingerstick) 282 mg/dL (70-99) 400 mg/dL (70-99) 420 mg/dL (70-99) 119 mg/dL (70-99) Medications Active Scripts Medications Dose Route/Sig Max Daily Dose Days Date Category Levemir (Insulin Detemir) 100 Unit/1 Ml Vial 20 Unit SQ QHS 02/24/21 Reported Glimepiride 4 Mg Tablet 1 Tab PO DAILY 02/24/21 Reported Lansoprazole 30 Mg Capsule.dr 1 Cap PO DAILY 02/24/21 Reported Atorvastatin Calcium 40 Mg Tablet 1 Tab PO QHS 02/24/21 Reported Lisinopril 30 Mg Tablet 1 Tab PO DAILY 02/24/21 Reported Januvia (Sitagliptin Phosphate) 100 Mg Tablet 1 Tab PO DAILY 02/24/21 Reported Metformin Hcl 1,000 Mg Tablet 1,000 Mg PO BIDWMEALS 02/24/21 Reported Impression . 1. Acute hypoxic respiratory failure secondary to COVID-19 viral pneumonia/early acute respiratory distress syndrome and acute lung injury. 2. No significant tobacco history. 3. Abnormal chest x-ray consistent with viral pneumonia. 4. Increased C-reactive protein. 5. [id number] protein-calorie malnutrition. Plan . Updated 03/04 Oxygen requirements have decreased 6-minute walk Possible discharge in the a.m. Continue steroids 03/03 patient continues to do well, continue current support, dexamethasone, Remdesivir Oxygen supplementation for 1. oxygenation better, monitor respiratory status titrate FiO2 to keep saturation 90% and above. 2. vapotherm if desaturates. 3. Continue dexamethasone for a total of 10 days. 4. 5 days of remdesivir. 5. baricitinib. 6. Discussed with RN. 7. LFT within normal limits ISAAC NUNEZ MD Mar 04, 2021 08:59
[2021-03-04 11:40] VITALS: BP 104/58
--- NOTE | 2021-03-04 13:01 | PDOC ---
[facility] [facility] PROGRESS NOTE Date of Service DOS: DATE: 03/04/21 TIME: 13:00 Chief Complaint Chief Complaint A/P: Acute respiratory failure with hypoxia COVID-19 pneumonia - remdesivir, daily LFTs, IV Decadron 6 mg daily to complete 10-day, supportive care; zinc, vitamin C, CRP >75 and LFTs elevated, consulted pulm and initiated Baricitinib on 02/25 DM2 with hyperglycemia Elevated CK Severe protein calorie malnutrition Hyponatremia FEN - ADA diet PPX - Lovenox FULL CODE Dispo - inpatient for above Patient names his (Kacey Brennan) as surrogate decision-maker. History of Present Illness History of Present Illness Mr Brennan is a 46-year-old male with past medical history DM2, HLD, presents to the ED with complaints of worsening shortness of breath. States he was tested positive for COVID-19 5 days ago, and his symptoms have been worsening since that time. He reports associated cough, fever, headache, sore throat, fatigue, body aches, loss of smell, and loss of taste. Upon arrival in the ED he was tachycardic and febrile, with T-max 103.3 F. His oxygen saturation was 80% on room air, which improved with 6 L nasal cannula. Labs on admission showed CBG 295, CK 462, albumin 3.1. He received IV fluids, Rocephin, and IV Decadron. States he did not receive his COVID-19 vaccination as he was concerned that the side effects may make him feel sick. Will admit patient for further medical management. ABG 7.45/34/61 on 6 L nasal cannula 02/25: Febrile 101.4 F overnight glucose in the 200s. Now on 15 L nasal cannula with O2 saturations 96%. CRP returned over 120. Appetite poor 02/26: Afebrile overnight. Glucose still elevated. Pulmonology consulted and added baricitinib on 02/25/2021. Now on 10 L NC O2 saturations 91% 02/27: Afebrile. Labs improved. Improved. His cough is a lot more rough today and he continues to take off his oxygen is 90 has an appetite. In his room patient was with O2 saturation 77%. Placed on nasal cannula and O2 saturations came up on 12 L to 91%. Afebrile. Labs stable. Still with a painful cough. Is eating a little better. On facemask O2 10 L/min and saturations 93%. Glucose in 200s. 03/03/2021 No acute events overnight. Patient saturating well 92% on daily. Patient seen and examined bedside. No concerns from nursing. Patient's chart, labs, images were reviewed and discussed with RN 03/04/2021 No acute events overnight. Patient saturating 97% on 8 L nasal cannula. Patient seen and examined bedside. No complaints at this time. Encourage patient for this activity for ambulation to the bathroom and prone position Lying in bed. Patient expressed understanding. Patient's chart, labs, images were reviewed and discussed with RN Vitals/I&O Vitals/I&O: Vital Signs Date Time Temp Pulse Resp B/P (MAP) Pulse Ox O2 Delivery O2 Flow Rate FiO2 03/04/21 11:40 99.3 70 20 104/58 (73) 95 Nasal Cannula 6.0 99.3 I & O 03/03/21 03/03/21 03/04/21 14:59 22:59 06:59 Intake Total 540 ml 440 ml 0 ml Balance 540 ml 440 ml 0 ml Physical Exam General: Alert, Oriented X3, Cooperative, moderate distress Heart: Regular rate, Normal S1, Normal S2 Lungs: Clear Abdomen: Normal bowel sounds, Soft Extremities: No clubbing, No cyanosis Skin: No rashes, No breakdown Labs Labs: Laboratory Tests Test 03/03/21 16:58 03/03/21 19:48 03/04/21 08:01 03/04/21 11:45 Glucose (Fingerstick) 400 mg/dL (70-99) 420 mg/dL (70-99) 119 mg/dL (70-99) 279 mg/dL (70-99) Assessment and Plan Assessmemt and Plan Problems Medical Problems: (1) Bilateral pneumonia Status: Acute (2) COVID-19 Status: Acute (3) Hypoxia Status: Acute (4) Sepsis Status: Acute Comment Review of Relevant I have reviewed the following items alok (where applicable) has been applied. Medications: Current Medications Medications (Trade) Dose Ordered Sig/Carole Route PRN Reason Start Time Stop Time Status Last Admin Dose Admin Insulin Glargine (Lantus Syringe) 20 unit BID SQ 03/03/21 21:00 03/04/21 08:48 Insulin Human Lispro (HumaLOG) 10 units TIDWMEALS SQ 03/04/21 08:00 03/04/21 12:25 Insulin Human Lispro (HumaLOG) 10 units 1X ONCE SQ 03/03/21 21:00 03/03/21 21:01 DC 03/03/21 20:48 Justifications for Admission Other Justification LUIZA KING MD Mar 04, 2021 13:01
[2021-03-04] MEDS: ENOXAPARIN 40 MG/0.4 ML SYRINGE. SQ SCH (14:28)
[2021-03-04 15:20] VITALS: BP 96/56
[2021-03-04 19:00] VITALS: BP 104/57
[2021-03-04 23:05] VITALS: BP 96/61
[2021-03-05 03:32] VITALS: BP 113/72
[2021-03-05 07:13] VITALS: BP 117/64
[2021-03-05] MEDS: INSULIN LISPRO 300 UNITS/3 ML VIAL. SQ SCH ×4 (08:00→12:33)
[2021-03-05] MEDS ORDERED: PRED20TA PO (08:07)
--- NOTE | 2021-03-05 08:10 | DISCH ---
DISCHARGE INSTRUCTIONS Condition on Discharge Condition on Discharge: Guarded Activity After Discharge Activity Instructions for Disc: Activity as tolerated Lifting Instructions after Dis: Do not lift >10 pounds Exercise Instruction after Dis: Walk 15 min, 3 x per day Driving Instructions after Dis: Do not drive today Weight Bearing Status after Di: Full weight bearing Diet after Discharge Diet after Discharge: Cardiac, Diabetic No Calorie Level Contacting the DR. after DC Call your doctor for: If your condition worsens (Come to the ED to be reevaluated) Follow-Up Follow up with: PCP within 2 weeks of discharge Follow Up With: Pulmonology as needed Treatment/Equipment after DC Discharge Respiratory Equipmen: Oxygen (Check pulse oximeter and only wear oxygen if O2 decreases to less than 90%) LUIZA KING MD Mar 05, 2021 08:10
[2021-03-05] MEDS: ZINC SULFATE 220 MG CAPSULE. PO SCH (08:14)
[2021-03-05] MEDS: BENZONATATE 100 MG CAPSULE. PO SCH (08:14)
[2021-03-05] MEDS: ASCORBIC ACID 500 MG TABLET PO SCH (08:14)
[2021-03-05] MEDS: LACTOBACILLUS RHAMNOSUS GG 1 CAPSULE. PO SCH (08:14)
[2021-03-05] MEDS: THIAMINE 100 MG TABLET. PO SCH (08:14)
[2021-03-05] MEDS: BARICITINIB 2 MG PO SCH (08:14)
[2021-03-05] MEDS: DEXAMETHASONE SOD PHOS 4 MG/ML VIAL IVP SCH (08:15)
--- NOTE | 2021-03-05 09:21 | PDOC ---
PULMONARY PROGRESS NOTES DATE: 03/05/21 TIME: 09:20 Subjective Patient to discharge today underwent 6-minute walk Vitals Vital Signs Date Time Temp Pulse Resp B/P (MAP) Pulse Ox O2 Delivery O2 Flow Rate FiO2 03/05/21 07:13 97.5 72 20 117/64 (81) 96 Nasal Cannula 2.0 97.5 ROS: No Nausea, No Chest Pain, No Abdominal Pain, No Increase Cough General: Alert, No acute distress Lungs: Clear Cardiovascular: S1 Abdomen: Soft Neuro Exam: Alert Extremities: No Edema Labs Laboratory Tests Test 03/03/21 11:52 03/03/21 16:58 03/03/21 19:48 03/04/21 08:01 Glucose (Fingerstick) 282 mg/dL (70-99) 400 mg/dL (70-99) 420 mg/dL (70-99) 119 mg/dL (70-99) Test 03/04/21 11:45 03/04/21 16:33 03/04/21 20:49 03/05/21 07:17 Glucose (Fingerstick) 279 mg/dL (70-99) 294 mg/dL (70-99) 300 mg/dL (70-99) 154 mg/dL (70-99) Laboratory Tests Test 03/04/21 11:45 03/04/21 16:33 03/04/21 20:49 03/05/21 07:17 Glucose (Fingerstick) 279 mg/dL (70-99) 294 mg/dL (70-99) 300 mg/dL (70-99) 154 mg/dL (70-99) Medications Active Scripts Medications Dose Route/Sig Max Daily Dose Days Date Category Levemir (Insulin Detemir) 100 Unit/1 Ml Vial 20 Unit SQ QHS 02/24/21 Reported Glimepiride 4 Mg Tablet 1 Tab PO DAILY 02/24/21 Reported Lansoprazole 30 Mg Capsule.dr 1 Cap PO DAILY 02/24/21 Reported Atorvastatin Calcium 40 Mg Tablet 1 Tab PO QHS 02/24/21 Reported Lisinopril 30 Mg Tablet 1 Tab PO DAILY 02/24/21 Reported Januvia (Sitagliptin Phosphate) 100 Mg Tablet 1 Tab PO DAILY 02/24/21 Reported Metformin Hcl 1,000 Mg Tablet 1,000 Mg PO BIDWMEALS 02/24/21 Reported Impression . 1. Acute hypoxic respiratory failure secondary to COVID-19 viral pneumonia/early acute respiratory distress syndrome and acute lung injury. 2. No significant tobacco history. 3. Abnormal chest x-ray consistent with viral pneumonia. 4. Increased C-reactive protein. 5. [id number] protein-calorie malnutrition. Plan . Updated 03/05 Discussed with patient and RN Follow-up with me in 4 to 6 weeks Patient instructed to monitor his O2 sat at home, he could titrate the FiO2 down if his saturations stay above 90% Patient to call my office with any questions updated 03/04 Oxygen requirements have decreased 6-minute walk Possible discharge in the a.m. Continue steroids ISAAC NUNEZ MD Mar 05, 2021 09:21
[2021-03-05] MEDS: INSULIN GLARGINE SYRINGE. SQ SCH (10:03)
[2021-03-05 11:25] VITALS: BP 104/59
--- NOTE | 2021-03-05 12:26 | NUR ---
JARAD following. Discussed with RN, pt completed 6 minute walk, needing 2L with rest and 6L with activity. Pt eager to discharge, JARAD faxed referral to [facility] as [facility] has a tank in office to send home with pt. Awaiting confirmation of acceptance. JARAD will continue to follow. Addendum: 03/05/21 at 1328 by BENJAMIN ABRAHAM [facility] provided. Pt to call [facility] once home. RN notified.
--- NOTE | 2021-03-05 13:30 | NUR ---
Discharge Note: JURGEN KHAN Discharge instructions and discharge home medications reviewed with Patient and a copy given. All questions have been answered and understanding verbalized. The following instructions and handouts were given: discharge instructions, new prescription, education and follow up recommendations. Discontinued lines and drains: Peripheral IV discontinued intact. Patient discharged to Home or Self Care with Family Member via Wheelchair off unit by this RN.
== END 2021-03-05 13:35 | disposition home or self-care (01) | DRG 871 ==
LOC: ER 08:31 → 5 SOUTH 09:56 → 5 NORTH 02-27 14:57
PROVIDERS: ADMIT Family Medicine; ATTEND Family Medicine
PROC: XW033E5 Introduction of Remdesivir Anti-infective into Peripheral Vein, Percutaneous Approach, New Technology Group 5 (ICD-10-PCS; principal; 2021-02-24)
PROC: XW0DXM6 Introduction of Baricitinib into Mouth and Pharynx, External Approach, New Technology Group 6 (ICD-10-PCS; 2021-02-25)
PROC: 5A0935A Assistance with Respiratory Ventilation, Less than 24 Consecutive Hours, High Flow/Velocity Cannula (ICD-10-PCS; 2021-03-02)
DX: A41.89 Other specified sepsis (principal); U07.1 COVID-19; J12.82 Pneumonia due to coronavirus disease 2019; E43 Unspecified severe protein-calorie malnutrition; J80 Acute respiratory distress syndrome; E87.1 Hypo-osmolality and hyponatremia; E11.65 Type 2 diabetes mellitus with hyperglycemia; E78.5 Hyperlipidemia, unspecified; Z68.38 Body mass index [BMI] 38.0-38.9, adult; Z83.3 Family history of diabetes mellitus; Z88.0 Allergy status to penicillin
CPT/HCPCS: 36415; 36600; 71045; 80048; 80053; 80076; 82248; 82550; 82805; 82962; 83036; 83605; 83735; 83880; 84484; 85007; 85025; 85379; 85610; 85730; 86140; 87040; 87804; 93005; 94618; 96361; 96365; 96375; J0456; J0696; J1100; J1650; J1815; J7030; J7050; 99285-25; G0378